=== PATIENT | female | born 1970 | race Caucasian/White ===

== ENCOUNTER → 2016-11-02 | Outpatient (CLI) | payer MEDICAID ==
[~2016-11-02] MED LIST: AMINOPHYLLINE INJ/PF 250 MG/10 ML SDV IV ONE; REGADENOSON INJ 0.4 MG/5 ML DISP.SYRIN IV ONE
--- NOTE | 2016-11-02 14:14 | DRAGON STRESS TEST REPORT ---
INTRAVENOUS LEXISCAN CARDIOLITE STRESS TEST USING SINGLE PHOTON EMMISION COMPUTERIZED TOMOGRAPHIC. DATE OF PROCEDURE: November 02, 2016 INDICATION : Chest pain CARDIAC RISK FACTORS: Diabetes, hypertension, nicotine use RESTING EKG: Sinus rhythm, no Baseline ST segment changes noted STRESS EKG: No significant changes noted with LexiScan bolus REASON FOR TERMINATION: Protocol. PROCEDURE REPORT: Baseline heart rate 69 beats per minute with blood pressure of 108/58. Patient had no significant complaints. Heart rate at 2 minutes post bolus 88 with a blood pressure of 137/51. 3 minutes post bolus heart rate 81 with blood pressure of 118/54. No significant EKG changes were noted. Patient had no significant complaints during the procedure or postprocedure. Patient injected with Aminophyllin 75 mg at 3 minutes or later after Lexiscan bolus. CONCLUSIONS: Normal EKG and hemodynamic response to IV LexiScan. NUCLEAR DATA: At rest the patient was given 14.7 millicuries of technetium 99 sestamibi injected intravenously. As per protocol rest gated SPECT images were obtained. Subsequently the patient was given intravenous LexiScan at a dose of 0.4 mg in 5 mL intravenously, followed by flush with normal saline. Subsequently the stress dose of 43.1 millicuries of technetium 99 sestamibi was injected intravenously. As per protocol stress gated images were obtained. NUCLEAR INTERPRETATION: Both raw and processed data were used for interpretation. Visual, qualitative, computer-generated quantitative data was used. There was good myocardial uptake of technetium compound. Motion artifact and soft tissue attenuations were noted. Increased visceral uptake was noted. Increased breast attenuation was noted which did cause some difficulty with interpretation. No definitive areas of transient perfusion defect noted except for mild decreased uptake in the mid anterior wall slightly more in the stress images as compared to rest but there were no corresponding wall motion abnormalities. Most likely related to differences in breast attenuation but cannot rule out mild mid anterior wall ischemia. No definitive areas of fixed perfusion defect or scars noted. EKG gated imaging showed LV EF at 58 %, rest and stress gated EF similar visually. T. I D. ratio was 1.36 and therefore abnormal. Lung heart ratio noted to be within normal limits at 0.26. No significant extracardiac and abnormal radiotracer activities were noted. RV free wall uptake was noted to be borderline increased. IMPRESSION: Also refer to comments under nuclear interpretation. Also test results needs to be interpreted in the context of pretest probability. 1. Probable mild ischemia in the mid anterior wall ischemia. Please refer to comments under nuclear interpretation. 2. There is no definitive scintigraphic evidence of myocardial infarction/scar. 3. EKG gated imaging shows left ejection fraction of approximately 58 %. 4. Transient ischemic dilatation was noted therefore worse ischemia or balanced ischemia would be under consideration. RECOMMENDATIONS: Aggressive risk factor modification, medical therapy. Consider further evaluation with such as heart catheterization, cardiac CTA, cardiac MRI, stress echo etc. as clinically indicated. Inability to exercise by itself can lead to increased cardiovascular event risks. Sanjeev Najera M.D., JAMAR[employer] Dash[employer] Developer sap technical developer, Board certified in cardiovascular diseases, Nuclear cardiology, Echocardiography Cardiac CT and cardiac MRI Ph. [phone] [facility]
== END ==
LOC: RAD 08:30
PROVIDERS: ATTEND Internal Medicine Cardiovascular Disease
DX: R07.2 Precordial pain (principal)
CPT/HCPCS: 93017; 78452; A9500; J2785; J0280; Q9969

== ENCOUNTER → 2016-11-21 | Outpatient (CLI) | payer MEDICAID ==
[2016-11-21 11:36] LABS: ABSOLUTE BASOPHILS # (AUTO) 0.1 10^3/uL (0.0-0.2); ABSOLUTE EOSINOPHILS # (AUTO) 0.6 10^3/uL (0.0-0.6); ABSOLUTE LYMPHOCYTES (AUTO) 2.4 10^3/uL (0.5-4.7); ABSOLUTE MONOCYTES (AUTO) 0.8 10^3/uL (0.1-1.4); ABSOLUTE NEUT (AUTO) 7.5 10^3/uL (1.7-8.2); EOSINOPHILS % (AUTO) 5.2 % (0-6); HEMATOCRIT 30.7 % (36.0-47.0); HEMOGLOBIN 9.8 g/dL (12.0-15.5); HGB HCT DIFFERENCE -1.3; LYMPHOCYTES % (AUTO) 21.4 % (13-45); MEAN CORPUSCULAR HEMOGLOBIN 22.1 pg (27.0-33.4); MEAN CORPUSCULAR VOLUME 69 fl (80-97); MONOCYTES % (AUTO) 6.9 % (3-13); RED BLOOD COUNT 4.45 10^6/uL (3.72-5.28); RED CELL DISTRIBUTION WIDTH 17.3 % (11.5-14.0); SEGMENTED NEUTROPHILS % (AUTO) 65.5 % (42-78); WHITE BLOOD COUNT 11.4 10^3/uL (4.0-10.5)
[2016-11-21 11:39] LABS: PROTHROMBIN TIME 12.5 SEC (11.4-15.4)
[2016-11-21 11:40] LABS: PARTIAL THROMBOPLASTIN TIME 28.6 SEC (23.5-35.8)
[2016-11-21 12:00] LABS: ANION GAP 14 (5-19); BLOOD UREA NITROGEN 13 mg/dL (7-20); CALCIUM 9.9 mg/dL (8.4-10.2); CARBON DIOXIDE 25 mmol/L (22-30); CHLORIDE 100 mmol/L (98-107); CREATININE RESULT 1.06 mg/dL (0.52-1.25); GLUCOSE 108 mg/dL (75-110); POTASSIUM 4.5 mmol/L (3.6-5.0); SODIUM 139.2 mmol/L (137-145)
== END ==
LOC: OD 10:32
PROVIDERS: ATTEND Internal Medicine Cardiovascular Disease
DX: Z01.810 Encounter for preprocedural cardiovascular examination (principal); R07.89 Other chest pain; Z79.01 Long term (current) use of anticoagulants
CPT/HCPCS: 36415; 80048; 85025; 85610; 85730

== ENCOUNTER 2017-02-25 03:40 | Emergency (ER) | payer MEDICAID ==
[2017-02-25 03:50] VITALS: BP 135/78
== END 2017-02-25 05:32 | disposition left against medical advice (07) ==
LOC: ER 03:40
DX: Z53.21 Procedure and treatment not carried out due to patient leaving prior to being seen by health care provider (principal)

== ENCOUNTER 2017-02-26 20:16 | Emergency (ER) | payer MEDICAID ==
[2017-02-26] MEDS ORDERED: ASPIRIN 81 MG TABLET, CHEWABLE PO ONE (20:18)
[2017-02-26 20:55] LABS: ABSOLUTE BASOPHILS # (AUTO) 0.1 10^3/uL (0.0-0.2); ABSOLUTE EOSINOPHILS # (AUTO) 0.6 10^3/uL (0.0-0.6); ABSOLUTE LYMPHOCYTES (AUTO) 1.9 10^3/uL (0.5-4.7); ABSOLUTE MONOCYTES (AUTO) 0.8 10^3/uL (0.1-1.4); ABSOLUTE NEUT (AUTO) 8.4 10^3/uL (1.7-8.2); BASOPHILS % (AUTO) 0.7 % (0-2); EOSINOPHILS % (AUTO) 4.7 % (0-6); HEMOGLOBIN 8.9 g/dL (12.0-15.5); HGB HCT DIFFERENCE -1.3; LYMPHOCYTES % (AUTO) 16.1 % (13-45); MEAN CORPUSCULAR HEMOGLOBIN 21.4 pg (27.0-33.4); MEAN CORPUSCULAR HGB CONC 31.7 g/dL (32.0-36.0); MEAN CORPUSCULAR VOLUME 68 fl (80-97); MONOCYTES % (AUTO) 6.7 % (3-13); RED BLOOD COUNT 4.15 10^6/uL (3.72-5.28); RED CELL DISTRIBUTION WIDTH 17.9 % (11.5-14.0); SEGMENTED NEUTROPHILS % (AUTO) 71.8 % (42-78); WHITE BLOOD COUNT 11.8 10^3/uL (4.0-10.5)
--- NOTE | 2017-02-26 21:01 | ER Document Report ---
ED General - General Chief Complaint: Chest Pain Stated Complaint: CHEST PAIN Time Seen by Provider: 02/26/17 20:43 Mode of Arrival: Ambulatory Information source: Patient Notes: 46-year-old female presents to ED for pain that started in her back yesterday. She states the pain is in her mid to upper back wrapped around to her upper stomach and is now up in her chest. Patient denies any nausea vomiting shortness of breath or fever. She denies any cardiac history except for high blood pressure. She states she does have diabetes and anxiety as well as migraines. She also has depression PTSD and ADHD. Patient is in no acute distress on examination. TRAVEL OUTSIDE OF THE [place] IN LAST 30 DAYS: No - HPI Onset: Yesterday Onset/Duration: Gradual - See HPI see above note Quality of pain: Achy, Cramping Severity: Severe Pain Level: 5 Associated symptoms: Chest pain, Other - Back pain. denies: Nonproductive cough , Productive cough, Fever, Nausea, Vomiting Exacerbated by: Sitting, Movement, Walking Relieved by: Denies Similar symptoms previously: Yes Recently seen / treated by doctor: No - Related Data Allergies/Adverse Reactions: No Known Allergies Allergy (Verified 02/26/17 20:28) Past Medical History - General Information source: Patient - Social History Smoking Status: Current Every Day Smoker Cigarette use (# per day): Yes - 6 cigarettes a day Chew tobacco use (# tins/day): No Smoking Education Provided: Yes - Less than 2 minutes she states she is trying to quit she is on Chantix Frequency of alcohol use: None Drug Abuse: None Occupation: Own cleaning service Lives with: Family, Spouse/Significant other Family History: Arthritis, CAD, COPD, DM, Hyperlipidemia, Hypertension, Malignancy, Other - Anemia Patient has suicidal ideation: No Patient has homicidal ideation: No - Past Medical History Cardiac Medical History: Reports: Hx Hypertension - on meds Pulmonary Medical History: Reports: Hx Asthma, Hx Bronchitis, Hx COPD - inhalers Neurological Medical History: Reports: Hx Migraine Endocrine Medical History: Reports: Hx Diabetes Mellitus Type 2 Renal/ Medical History: Reports: Hx Ovarian Cysts Malignancy Medical History: Reports: None GI Medical History: Reports: Hx Crohn's Disease, Hx Gastroesophageal Reflux Disease Musculoskeltal Medical History: Reports Hx Arthritis - spine, all joints, Reports Hx Fibromyalgia, Reports Hx Musculoskeletal Trauma Skin Medical History: Reports None Psychiatric Medical History: Reports: Hx Anxiety, Hx Attention Deficit Hyperactivity Disorder, Hx Depression, Hx Post Traumatic Stress Disorder Traumatic Medical History: Reports: Hx Fractures - Foot Infectious Medical History: Reports: None Past Surgical History: Reports: Hx Section, Hx Cholecystectomy, Hx Herniorrhaphy, Hx Tubal Ligation - Immunizations Immunizations up to date: Yes Hx Diphtheria, Pertussis, Tetanus Vaccination: Yes Review of Systems - Review of Systems Constitutional: No symptoms reported EENT: No symptoms reported Cardiovascular: No symptoms reported Respiratory: No symptoms reported Gastrointestinal: Abdominal pain - epigastric radiates to chest started in back Genitourinary: No symptoms reported Female Genitourinary: No symptoms reported Musculoskeletal: Back pain Skin: No symptoms reported Hematologic/Lymphatic: No symptoms reported Neurological/Psychological: No symptoms reported -: Yes All other systems reviewed and negative Physical Exam - Vital signs Vitals: Pulse Ox 100 02/26/17 20:18 Interpretation: Normal - General General appearance: Appears well, Alert - HEENT Head: Normocephalic, Atraumatic Eyes: Normal Pupils: PERRL - Respiratory Respiratory status: No respiratory distress Chest status: Nontender, Tender - Tender to touch back and lower sternum area Breath sounds: Normal Chest palpation: Normal - Cardiovascular Rhythm: Regular Heart sounds: Normal auscultation Murmur: No - Abdominal Inspection: Normal Distension: No distension Bowel sounds: Normal Tenderness: Tender - Upper abdomen bilateral Organomegaly: No organomegaly - Back Back: Normal, Nontender - Extremities General upper extremity: Normal inspection, Nontender, Normal color, Normal ROM , Normal temperature General lower extremity: Normal inspection, Nontender, Normal color, Normal ROM , Normal temperature, Normal weight bearing. No: Ana Rosa's sign - Neurological Neuro grossly intact: Yes Cognition: Normal Orientation: AAOx4 [place] Coma Scale Eye Opening: Spontaneous Jessica Coma Scale Verbal: Oriented Jessica Coma Scale Motor: Obeys Commands [place] Coma Scale Total: 15 Speech: Normal Motor strength normal: LUE, RUE, LLE, RLE Sensory: Normal - Psychological Associated symptoms: Normal affect, Normal mood - Skin Skin Temperature: Warm Skin Moisture: Dry Skin Color: Normal Course - Re-evaluation Re-evalutation: 02/27/17 03:36 discussed labs and chest xray with patient and Dr vega. Patient to follow up with primary md in the am to schedule a follow up appointment. - Vital Signs Vital signs: Temp Pulse Resp BP Pulse Ox 98.3 F 87 19 125/77 95 02/26/17 20:28 02/26/17 20:28 02/27/17 03:01 02/27/17 03:01 02/27/17 03:01 - Laboratory Result Diagrams: 02/26/17 20:20 02/26/17 20:20 Laboratory results interpreted by me: 02/26/17 02/26/17 20:20 20:20 WBC 11.8 H Hgb 8.9 L Hct 28.0 L MCV 68 L MCH 21.4 L MCHC 31.7 L RDW 17.9 H Absolute Neutrophils 8.4 H Creatinine 1.32 H Est GFR ( Amer) 53 L Est GFR (Non-Af Amer) 44 L Glucose 118 H - Diagnostic Test Radiology reviewed: Image reviewed, Reports reviewed - EKG Interpretation by Me EKG shows normal: Sinus rhythm Discharge - Discharge Clinical Impression: Upper back pain on left side Chest pain Qualifiers: Chest pain type: unspecified Qualified Code(s): R07.9 - Chest pain, unspecified Condition: Stable Disposition: HOME, SELF-CARE Additional Instructions: CHEST PAIN OF UNCLEAR CAUSE: The exact cause of your chest pain isn't clear. Fortunately, there is no evidence of a dangerous medical condition. Further testing may be required to find the source of the pain. Most often, we find that this pain is coming from the chest wall -- the muscles or rib joints in the chest. But chest pain can come from the lung and lung lining, the esophagus, the heart valves or heart lining, and even the stomach or gallbladder. Rest. Eat lightly until the pain is gone. We may prescribe medicine for pain and inflammation. You should call the physician immediately if the pain radiates to the shoulder, jaw or arms; if you start to run a fever or develop a cough; or if you develop shortness of breath, or other new or alarming symptoms. NORMAL EXAM AND WORKUP: At this time, your examination and workup show no significant abnormality. No significant abnormal physical findings were noted. All laboratory, EKG, and imaging (x-ray, CT scans, ultrasound) studies that were ordered show no significant abnormality. Although your examination and all studies that were ordered showed no significant abnormal finding, there are no examinations and no studies that are 100% accurate. There is always the possibility that some abnormality could exist and not be detected with physical examination or within the limits and capabilities of laboratory and other studies. You should return or follow up as you were instructed on your visit today for further evaluation if your symptoms do not resolve. CHEST WALL PAIN: Your chest pain may be coming from the chest wall. This is often caused by straining the muscles or joints in the chest during physical activity, direct trauma, coughing, or vigorous vomiting. Persons with arthritis are especially prone to this type of pain, due to inflammation of the cartilage joints near the breast bone. Occasionally, no cause can be found. Rest from strenuous physical activity. This kind of chest pain is usually made worse by movement of the chest. Depending on the symptoms, we may prescribe medicine for pain, muscle relaxation, and antiinflammatory effects. If the pain is new, and seems to be due to muscle strain, cold packs can help. Otherwise, apply gentle warmth to the painful area for 15 minutes every hour or two. You should call contact the doctor immediately if things change. Further evaluation is needed if you develop a fever or cough, if the nature of the pain changes, or if you become short of breath. ACID REFLUX DISEASE (GERD): Gastro-Esophageal Reflux Disease (GERD) is caused by stomach acid refluxing back up into the esophagus. The valve at the end of the esophagus may be weak. This is common in persons with a hiatal hernia. GERD symptoms can include indigestion, chest pain, heartburn, or food "sticking." Certain foods, alcohol, and aspirin can make GERD worse. Treatment depends on the severity. Usually, antacids or acid-suppressing medicines are used. When the esophagus is acutely inflamed, the physician will often prescribe membrane-protective drugs such as Carafate. Some patients benefit from medication such as Reglan that tightens the valve at the top of the stomach. Avoid those foods that bring on your symptoms. For many people, these foods are coffee, chocolate, onions, garlic, and carbonated drinks. Don't use alcohol, aspirin, caffeine, or tobacco. Don't eat late at night -- within 4 hours of bedtime. Don't over-eat. If necessary, elevate the head of your bed about 4 inches so that stomach acid will not roll up into your esophagus. Call the doctor if you develop severe chest pain, inability to swallow fluids, fever, or worsening symptoms. ASPIRIN: Aspirin has been shown to have a beneficial effect on blood circulation by reducing the clotting effect of platelets in the blood. These beneficial effects can be achieved by taking just a single baby (81 mg) aspirin a day. It is recommended that any person over the age of forty take a single baby aspirin every day for heart and brain circulation, unless you are allergic to aspirin or have some significant bleeding disorder. It is strongly recommended that people who have proven cardiac or blood circulation disturbances should take a baby aspirin every day. ANTACID THERAPY: You have been instructed to start antacid therapy. Antacids directly neutralize stomach acid. This is useful for acid irritation of the esophagus, gastritis, and ulcers. You should take two tablespoons of antacid one hour after each meal and three hours after each meal. If you are not eating, take the antacid every two hours. If you are using a concentrate (such as Maalox TC), use only one tablespoon. Many antacids affect the bowels. The most common problem is diarrhea. In this case, a pure aluminum hydroxide antacid (such as AlternaGel) can be substituted for some or all doses. If the problem is constipation, add a teaspoon of Milk of Magnesia to each dose. Call the doctor if you experience continued diarrhea or constipation, or if you develop lightheadedness, bloody stool or vomitus, severe abdominal pain, or black stool. Please call your primary doctor tomorrow and schedule a follow-up visit. Please take your labs and x-ray with you to this visit. Any increase in chest pain or change in chest pain please come back to the ER for reexamination. FOLLOW-UP CARE: If you have been referred to a physician for follow-up care, call the physician s office for an appointment as you were instructed or within the next two days. If you experience worsening or a significant change in your symptoms, notify the physician immediately or return to the Emergency Department at any time for re-evaluation. Forms: Smoking Cessation Education Referrals: ANDREA JUNG, [Primary Care Provider] - Follow up as needed
[2017-02-26 21:02] LABS: ALANINE AMINOTRANSFERASE 28 U/L (9-52); ALKALINE PHOSPHATASE 73 U/L (38-126); ANION GAP 14 (5-19); ASPARTATE AMINO TRANSFERASE 18 U/L (14-36); BILIRUBIN,DIRECT 0.3 mg/dL (0.0-0.4); BILIRUBIN,TOTAL 0.4 mg/dL (0.2-1.3); BLOOD UREA NITROGEN 14 mg/dL (7-20); CALCIUM 9.6 mg/dL (8.4-10.2); CARBON DIOXIDE 23 mmol/L (22-30); CHLORIDE 102 mmol/L (98-107); CREATINE KINASE 88 U/L (30-135); CREATININE RESULT 1.32 mg/dL (0.52-1.25); GLUCOSE 118 mg/dL (75-110); POTASSIUM 3.9 mmol/L (3.6-5.0); SODIUM 138.5 mmol/L (137-145)
[2017-02-26 21:13] LABS: CREATINE KINASE MB 0.54 ng/mL (<4.55)
[2017-02-26 21:18] LABS: TROPONIN I < 0.012 ng/mL
--- NOTE | 2017-02-26 22:06 | RADIOLOGY REPORT (SQ) ---
EXAM DESCRIPTION: CHEST SINGLE VIEW COMPLETED DATE/TIME: 02/26/2017 9:15 pm REASON FOR STUDY: chest pain COMPARISON: May 2016 EXAM PARAMETERS: NUMBER OF VIEWS: One view. TECHNIQUE: Single frontal radiographic view of the chest acquired. RADIATION DOSE: NA LIMITATIONS: None. FINDINGS: LUNGS AND PLEURA: No opacities, masses or pneumothorax. No pleural effusion. MEDIASTINUM AND HILAR STRUCTURES: No masses. Contour normal. HEART AND VASCULAR STRUCTURES: Heart normal in size. Normal vasculature. BONES: No acute findings. HARDWARE: None in the chest. OTHER: No other significant finding. IMPRESSION: NO ACUTE RADIOGRAPHIC FINDING IN THE CHEST. TECHNICAL DOCUMENTATION: JOB ID: [id number]
[2017-02-27 03:09] VITALS: BP 125/77
--- NOTE | 2017-02-27 08:03 | EKG REPORT ---
SEVERITY:- OTHERWISE NORMAL ECG - SINUS RHYTHM BORDERLINE LEFT AXIS DEVIATION : Confirmed by: Raj Landeros MD 27-Feb-2017 08:02:48
== END 2017-02-27 03:25 | disposition home or self-care (01) ==
LOC: ER 20:16
DX: R07.9 Chest pain, unspecified (principal); M54.6 Pain in thoracic spine; F32.9 Major depressive disorder, single episode, unspecified; F90.9 Attention-deficit hyperactivity disorder, unspecified type; F17.210 Nicotine dependence, cigarettes, uncomplicated
CPT/HCPCS: 36415; 71010; 80053; 82550; 82553; 83690; 84484; 85025; 93005; 93010; 99285

== ENCOUNTER 2017-09-21 20:43 | Emergency (ER) | payer MEDICAID ==
[2017-09-21] MEDS ORDERED: KETOROLAC TROMETHAMINE INJ/PF 30 MG/1 ML SDV IV ONE (22:39)
[2017-09-21] MEDS ORDERED: ONDANSETRON HCL INJ/PF 4 MG/2 ML SDV IV ONE (22:39)
[2017-09-21] MEDS ORDERED: NORMAL SALINE 1000 ML 1,000 ML IV ONE (22:39)
[2017-09-21] MEDS ORDERED: DIPHENHYDRAMINE HCL 50 MG/ML VIAL IV ONE (22:39)
--- NOTE | 2017-09-21 22:41 | ER Document Report ---
ED GI/ - General Chief Complaint: Flank Pain Stated Complaint: R FLANK PAIN Time Seen by Provider: 09/21/17 22:28 Notes: Patient is a 47-year-old female who comes emergency department for chief complaint of abdominal pain, she states pain is in her mid upper abdomen, she reports nausea but denies vomiting. Symptoms started yesterday, intermittent, worsened tonight. She denies fever or chills. She states she has pain in her back but this is "chronic". She denies injury, vaginal bleeding or discharge, dysuria. She states that she has not been able to have a bowel movement for about 3 days even though she is "straining and trying". She is not on stool softeners. Past medical history of cholecystectomy, anxiety, depression, PTSD, fibromyalgia, hypertension. TRAVEL OUTSIDE OF THE [place] IN LAST 30 DAYS: No - Related Data Allergies/Adverse Reactions: No Known Allergies Allergy (Verified 09/21/17 23:45) Past Medical History - General Information source: Patient - Social History Smoking Status: Former Smoker Chew tobacco use (# tins/day): No Frequency of alcohol use: None Drug Abuse: None Lives with: Spouse/Significant other Family History: Arthritis, CAD, COPD, DM, Hyperlipidemia, Hypertension, Malignancy, Other - Anemia Patient has suicidal ideation: No Patient has homicidal ideation: No - Past Medical History Cardiac Medical History: Reports: Hx Hypertension - on meds Pulmonary Medical History: Reports: Hx Asthma, Hx Bronchitis, Hx COPD - inhalers Neurological Medical History: Reports: Hx Migraine Renal/ Medical History: Reports: Hx Ovarian Cysts. Denies: Hx Peritoneal Dialysis GI Medical History: Reports: Hx Crohn's Disease, Hx Gastroesophageal Reflux Disease Musculoskeltal Medical History: Reports Hx Arthritis - spine, all joints, Reports Hx Fibromyalgia, Reports Hx Musculoskeletal Trauma Psychiatric Medical History: Reports: Hx Anxiety, Hx Attention Deficit Hyperactivity Disorder, Hx Depression, Hx Post Traumatic Stress Disorder Traumatic Medical History: Reports: Hx Fractures - Foot Past Surgical History: Reports: Hx Section, Hx Cholecystectomy, Hx Herniorrhaphy, Hx Tubal Ligation - Immunizations Immunizations up to date: Yes Hx Diphtheria, Pertussis, Tetanus Vaccination: Yes Review of Systems - Review of Systems Constitutional: No symptoms reported EENT: No symptoms reported Cardiovascular: No symptoms reported Respiratory: No symptoms reported Gastrointestinal: See HPI Genitourinary: See HPI Female Genitourinary: No symptoms reported Musculoskeletal: No symptoms reported Skin: No symptoms reported Hematologic/Lymphatic: No symptoms reported Neurological/Psychological: No symptoms reported Physical Exam - Vital signs Vitals: Temp Pulse Resp BP Pulse Ox 98.2 F 80 20 111/61 100 09/21/17 20:53 09/21/17 20:53 09/21/17 20:53 09/21/17 20:53 09/21/17 20:53 Interpretation: Normal - General General appearance: Appears well, Alert In distress: None - HEENT Head: Normocephalic, Atraumatic Eyes: Normal Pupils: PERRL - Respiratory Respiratory status: No respiratory distress Chest status: Nontender Breath sounds: Normal Chest palpation: Normal - Cardiovascular Rhythm: Regular Heart sounds: Normal auscultation Murmur: No - Abdominal Inspection: Normal Distension: No distension. No: Distended Bowel sounds: Normal Tenderness: Nontender. No: Tender, Guarding, Rebound Organomegaly: No organomegaly - Back Back: Normal, Nontender - Extremities General upper extremity: Normal inspection, Nontender, Normal color, Normal ROM , Normal temperature General lower extremity: Normal inspection, Nontender, Normal color, Normal ROM , Normal temperature, Normal weight bearing. No: Ana Rosa's sign - Neurological Neuro grossly intact: Yes Cognition: Normal Orientation: AAOx4 Jessica Coma Scale Eye Opening: Spontaneous [place] Coma Scale Verbal: Oriented [place] Coma Scale Motor: Obeys Commands Jessica Coma Scale Total: 15 Speech: Normal Motor strength normal: LUE, RUE, LLE, RLE Sensory: Normal - Psychological Associated symptoms: Normal affect, Normal mood - Skin Skin Temperature: Warm Skin Moisture: Dry Skin Color: Normal Course - Re-evaluation Re-evalutation: Soft abdomen, well-appearing patient. Unremarkable vital signs. CBC shows minimal leukocytosis with no shift. Anemia is chronic, patient states she is already aware of this and been told to take iron in the past but refused. Chemistry unremarkable, urinalysis unremarkable. Acute abdominal series showing no obstructive or concerning acute or normality's, shows moderate retained stool which is not close to the sigmoid/rectum. Patient was given hydration, medications, sitting up, smiling, conversational. Discussed workup. Very low suspicion of acute abdomen based on presentation on exam, low suspicion of infection or concerning etiology. Discussed options with patient, patient given magnesium citrate to go home with, prescriptions, follow-up recommendations, and return precautions. Patient and significant other state understanding and agreement. - Vital Signs Vital signs: Temp Pulse Resp BP Pulse Ox 97.6 F 68 16 121/54 L 99 09/22/17 01:20 09/22/17 01:20 09/22/17 01:20 09/22/17 01:20 09/22/17 01:20 - Laboratory Result Diagrams: 09/21/17 23:30 09/21/17 23:30 Laboratory results interpreted by me: 09/21/17 09/21/17 09/21/17 23:30 23:30 23:30 WBC 10.6 H Hgb 8.7 L Hct 27.8 L MCV 67 L MCH 21.1 L MCHC 31.3 L RDW 18.1 H Plt Count 456 H Carbon Dioxide 21 L Est GFR (Non-Af Amer) 52 L Glucose 124 H Urine Protein 30 H Urine Bilirubin MODERATE H Urine Urobilinogen 2.0 H Ur Leukocyte Esterase TRACE H Discharge - Discharge Clinical Impression: Abdominal pain Qualifiers: Abdominal location: generalized Qualified Code(s): R10.84 - Generalized abdominal pain Condition: Stable Disposition: HOME, SELF-CARE Additional Instructions: Your workup shows retained stool which is probably the cause of your discomfort. I recommend drinking 1 12:45 half of the magnesium citrate, waiting , if needed during the rest, if needed take the Colace prescribed for the next few days. Afterwards stop the medication and improve fiber in your diet. Stay hydrated. Take the Bentyl for cramping if needed, take the Phenergan for nausea if needed. Your workup also shows some degenerative changes in your back and also shows anemia. Please follow-up with primary care for additional management of these. Return the emergency department for any concerning symptoms including vomiting, fever, severe pain, swelling of the abdomen, or any other concerning or worsening symptoms. Prescriptions: Dicyclomine HCl [Bentyl 20 mg Tablet] 20 mg PO QID PRN #20 tablet PRN Reason: Docusate Sodium [Colace 100 mg Capsule] 100 mg PO ASDIR PRN #30 capsule PRN Reason: Promethazine HCl [Phenergan 25 mg Tablet] 1 - 2 tab PO Q6H PRN #15 tablet PRN Reason: Referrals: ANDREA JUNG DO [Primary Care Provider] - Follow up as needed
[2017-09-21 23:51] LABS: ABSOLUTE BASOPHILS # (AUTO) 0.1 10^3/uL (0.0-0.2); ABSOLUTE EOSINOPHILS # (AUTO) 0.3 10^3/uL (0.0-0.6); ABSOLUTE LYMPHOCYTES (AUTO) 2.4 10^3/uL (0.5-4.7); ABSOLUTE MONOCYTES (AUTO) 0.7 10^3/uL (0.1-1.4); BASOPHILS % (AUTO) 1.2 % (0-2); EOSINOPHILS % (AUTO) 2.6 % (0-6); HEMATOCRIT 27.8 % (36.0-47.0); HEMOGLOBIN 8.7 g/dL (12.0-15.5); LYMPHOCYTES % (AUTO) 23.1 % (13-45); MEAN CORPUSCULAR HEMOGLOBIN 21.1 pg (27.0-33.4); MEAN CORPUSCULAR HGB CONC 31.3 g/dL (32.0-36.0); MEAN CORPUSCULAR VOLUME 67 fl (80-97); MONOCYTES % (AUTO) 6.6 % (3-13); PLATELET COUNT 456 10^3/uL (150-450); RED BLOOD COUNT 4.13 10^6/uL (3.72-5.28); RED CELL DISTRIBUTION WIDTH 18.1 % (11.5-14.0); SEGMENTED NEUTROPHILS % (AUTO) 66.5 % (42-78); TOTAL CELLS COUNTED % (AUTO) 100 %; WHITE BLOOD COUNT 10.6 10^3/uL (4.0-10.5)
[2017-09-22 00:01] LABS: COLOR,URINE AMBER
[2017-09-22 00:02] LABS: APPEARANCE,URINE SLIGHTLY-CLOUDY; BILIRUBIN,URINE MODERATE (NEGATIVE); GLUCOSE, URINE NEGATIVE (NEGATIVE)
[2017-09-22 00:03] LABS: ADD MANUAL MICROSCOPIC YES; KETONES,URINE NEGATIVE (NEGATIVE); LEUKOCYTE ESTERASE,URINE TRACE (NEGATIVE); NITRITE,URINE NEGATIVE (NEGATIVE); PROTEIN,URINE 30 mg/dL (NEGATIVE); RBC,URINE 0-1 /HPF; URINE SPECIFIC GRAVITY 1.027; WBC,URINE 0-1 /HPF
--- NOTE | 2017-09-22 00:13 | RADIOLOGY REPORT (SQ) ---
EXAM DESCRIPTION: ACUTE ABDOMEN SERIES CLINICAL HISTORY: mid abd pain, nausea, no recent BM COMPARISON: None. FINDINGS: Single view of the chest with upright and spine views of the abdomen. Cardia mediastinal silhouette has normal size and contour. No consolidation, pneumothorax, or pleural effusion. No displaced rib fractures. Upright spine views of the abdomen demonstrate no free intraperitoneal air. Prior cholecystectomy. Scattered air-filled loops of large and small bowel. Moderate amount of stool. Bilateral surgical clips in the pelvis. Minimal degenerative change of the spine. No acute osseous abnormalities. No definite abnormal calcifications identified. IMPRESSION: 1. No acute pulmonary process. Nonobstructive bowel gas pattern.
[2017-09-22 00:27] LABS: ALANINE AMINOTRANSFERASE 26 U/L (9-52); ALKALINE PHOSPHATASE 74 U/L (38-126); ANION GAP 12 (5-19); ASPARTATE AMINO TRANSFERASE 19 U/L (14-36); BILIRUBIN,DIRECT 0.1 mg/dL (0.0-0.4); BILIRUBIN,TOTAL 0.4 mg/dL (0.2-1.3); BLOOD UREA NITROGEN 11 mg/dL (7-20); CALCIUM 9.7 mg/dL (8.4-10.2); CARBON DIOXIDE 21 mmol/L (22-30); CHLORIDE 105 mmol/L (98-107); GLUCOSE 124 mg/dL (75-110); LIPASE 47.7 U/L (23-300); POTASSIUM 4.3 mmol/L (3.6-5.0); SODIUM 138.2 mmol/L (137-145); TOTAL PROTEIN 6.5 g/dL (6.3-8.2)
[2017-09-22] MEDS ORDERED: MAGNESIUM CITRATE 296 ML BOTTLE PO ONE (00:51)
[2017-09-22 01:27] VITALS: BP 121/54
== END 2017-09-22 01:28 | disposition home or self-care (01) ==
LOC: ER 20:43
DX: R10.84 Generalized abdominal pain (principal); R11.0 Nausea; Z90.49 Acquired absence of other specified parts of digestive tract; F41.9 Anxiety disorder, unspecified; F32.9 Major depressive disorder, single episode, unspecified; F43.11 Post-traumatic stress disorder, acute; M79.7 Fibromyalgia; I10 Essential (primary) hypertension; Z87.891 Personal history of nicotine dependence
CPT/HCPCS: 99284; 96361; 96374; 96375; 36415; 83690; 85025; 80053; 81001; 74022; J3490; J1200; J1885; J2405; J7030

== ENCOUNTER → 2018-03-22 | Outpatient (CLI) | payer MEDICAID ==
--- NOTE | 2018-03-22 16:58 | RADIOLOGY REPORT (SQ) ---
EXAM DESCRIPTION: HAND RIGHT 3 VIEWS COMPLETED DATE/TIME: 03/22/2018 4:47 pm REASON FOR STUDY: RT HAND PAIN M79.641 PAIN IN RIGHT HAND COMPARISON: None. EXAM PARAMETERS: NUMBER OF VIEWS: Three views. TECHNIQUE: AP, lateral and oblique radiographic images acquired of the right hand. LIMITATIONS: None. FINDINGS: MINERALIZATION: Normal. BONES: No acute fracture or dislocation. No worrisome bone lesions. JOINTS: No effusions. SOFT TISSUES: No soft tissue swelling. No foreign body. OTHER: No other significant finding. IMPRESSION: 1. NEGATIVE STUDY OF THE RIGHT HAND. TECHNICAL DOCUMENTATION: JOB ID: [id number] [employer]- All Rights Reserved Reading location - IP/workstation name: [email or web address]
== END ==
LOC: OD 16:23
PROVIDERS: ATTEND Family Medicine
DX: M79.641 Pain in right hand (principal)

== ENCOUNTER 2018-03-24 09:45 | Emergency (ER) | payer MEDICAID ==
[2018-03-24 10:04] VITALS: BP 123/75
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
[2018-03-24] MEDS ORDERED: IBUPROFEN 800 MG TABLET PO ONE (10:30)
== END 2018-03-24 10:48 | disposition home or self-care (01) ==
LOC: ER 09:45
DX: S60.221A Contusion of right hand, initial encounter (principal); S60.211A Contusion of right wrist, initial encounter; X58.XXXA Exposure to other specified factors, initial encounter; F17.200 Nicotine dependence, unspecified, uncomplicated; I10 Essential (primary) hypertension; J44.9 Chronic obstructive pulmonary disease, unspecified; E11.9 Type 2 diabetes mellitus without complications
CPT/HCPCS: 99283; J3490

== ENCOUNTER 2018-04-25 19:51 | Emergency (ER) | payer MEDICAID ==
--- NOTE | 2018-04-25 20:22 | ER Document Report ---
ED Medical Screen (RME) - General Chief Complaint: Flank Pain Stated Complaint: KIDNEY CYST INFECTION Time Seen by Provider: 04/25/18 20:16 Notes: Pt. stated she has a cyst on her right kidney. Stated in the last few days she has had increased pain in right flank and moving around to her RUQ. Stated that she called her PCP who told her the cyst could be growing. Stated today when she went to the bathroom she noticed a white/yellow d/c when she wiped her vagina. Denies dysuria, fever, superpubic pain. EXAM: +R CVA tenderness I have greeted and performed a rapid initial assessment of this patient. A comprehensive ED assessment and evaluation of the patient, analysis of test results and completion of the medical decision making process will be conducted by additional ED providers. TRAVEL OUTSIDE OF THE [place] IN LAST 30 DAYS: No - Related Data Allergies/Adverse Reactions: No Known Allergies Allergy (Verified 09/21/17 23:45) Past Medical History - Social History Chew tobacco use (# tins/day): No - Past Medical History Cardiac Medical History: Reports: Hx Hypertension - on meds Pulmonary Medical History: Reports: Hx Asthma, Hx Bronchitis, Hx COPD - inhalers Neurological Medical History: Reports: Hx Migraine Endocrine Medical History: Reports: Hx Diabetes Mellitus Type 2 Renal/ Medical History: Reports: Hx Ovarian Cysts. Denies: Hx Peritoneal Dialysis GI Medical History: Reports: Hx Crohn's Disease, Hx Gastroesophageal Reflux Disease Musculoskeltal Medical History: Reports Hx Arthritis - spine, all joints, Reports Hx Fibromyalgia, Reports Hx Musculoskeletal Trauma Psychiatric Medical History: Reports: Hx Anxiety, Hx Attention Deficit Hyperactivity Disorder, Hx Depression, Hx Post Traumatic Stress Disorder Traumatic Medical History: Reports: Hx Fractures - Foot Past Surgical History: Reports: Hx Section, Hx Cholecystectomy, Hx Herniorrhaphy, Hx Tubal Ligation - Immunizations Immunizations up to date: Yes Hx Diphtheria, Pertussis, Tetanus Vaccination: Yes Physical Exam - Vital signs Vitals: Temp Pulse Resp BP Pulse Ox 98.2 F 92 16 148/69 H 100 04/25/18 19:57 04/25/18 19:57 04/25/18 19:57 04/25/18 19:57 04/25/18 19:57 Course - Vital Signs Vital signs: Temp Pulse Resp BP Pulse Ox 98.2 F 92 16 148/69 H 100 04/25/18 19:57 04/25/18 19:57 04/25/18 19:57 04/25/18 19:57 04/25/18 19:57 Doctor's Discharge - Discharge Referrals: ANDREA JUNG DO [Primary Care Provider] - Follow up as needed
[2018-04-25 21:07] LABS: ABSOLUTE BASOPHILS # (AUTO) 0.1 10^3/uL (0.0-0.2); ABSOLUTE EOSINOPHILS # (AUTO) 0.4 10^3/uL (0.0-0.6); ABSOLUTE LYMPHOCYTES (AUTO) 2.3 10^3/uL (0.5-4.7); ABSOLUTE MONOCYTES (AUTO) 0.8 10^3/uL (0.1-1.4); ABSOLUTE NEUT (AUTO) 6.8 10^3/uL (1.7-8.2); BASOPHILS % (AUTO) 0.8 % (0-2); EOSINOPHILS % (AUTO) 3.6 % (0-6); HEMATOCRIT 27.5 % (36.0-47.0); HEMOGLOBIN 8.7 g/dL (12.0-15.5); MEAN CORPUSCULAR HEMOGLOBIN 20.3 pg (27.0-33.4); MEAN CORPUSCULAR HGB CONC 31.7 g/dL (32.0-36.0); MONOCYTES % (AUTO) 7.6 % (3-13); PLATELET COUNT 497 10^3/uL (150-450); RED BLOOD COUNT 4.29 10^6/uL (3.72-5.28); RED CELL DISTRIBUTION WIDTH 18.6 % (11.5-14.0); TOTAL CELLS COUNTED % (AUTO) 100 %; WHITE BLOOD COUNT 10.4 10^3/uL (4.0-10.5)
[2018-04-25 21:15] LABS: ALANINE AMINOTRANSFERASE 26 U/L (9-52); ALBUMIN 4.2 g/dL (3.5-5.0); ALKALINE PHOSPHATASE 72 U/L (38-126); ANION GAP 12 (5-19); ASPARTATE AMINO TRANSFERASE 16 U/L (14-36); BILIRUBIN,DIRECT 0.2 mg/dL (0.0-0.4); BILIRUBIN,TOTAL 0.2 mg/dL (0.2-1.3); BLOOD UREA NITROGEN 11 mg/dL (7-20); CALCIUM 9.4 mg/dL (8.4-10.2); CARBON DIOXIDE 25 mmol/L (22-30); CHLORIDE 101 mmol/L (98-107); GLUCOSE 126 mg/dL (75-110); SODIUM 138.4 mmol/L (137-145); TOTAL PROTEIN 7.1 g/dL (6.3-8.2)
[2018-04-25] MEDS ORDERED: ONDANSETRON 4 MG TAB.RAPDIS PO ONE (21:26)
[2018-04-25] MEDS ORDERED: KETOROLAC TROMETHAMINE 60 MG/2 ML SDV IM ONE (21:26)
--- NOTE | 2018-04-25 21:26 | ER Document Report ---
ED General - General Chief Complaint: Flank Pain Stated Complaint: KIDNEY CYST INFECTION Time Seen by Provider: 04/25/18 20:16 Notes: Patient is a 47-year-old female that presents to the emergency department for chief complaint of right flank pain. Patient states that this pain started about a week ago as a dull ache, and has progressively gotten worse. She states that on the right side and wraps around towards the front, she had associated nausea but no vomiting. Denies any fevers, chills, night sweats, rashes, diarrhea, dysuria or hematuria. Denies history of kidney stones. She does report she was noted to have a kidney cyst on the right that was found incidentally, and she was told by her primary care, that it may be growing which may be causing her pain. She has not taken any medication for her pain, she currently rates it as a 8 out of 10, worse with lying on the right side, and any range of motion. Denies any specific injuries. Past Medical History: Diabetes mellitus, COPD, hypertension Past Surgical History: Cholecystectomy, rotator cuff surgery, C-sections x2, tubal ligation Social History: Admits to smoking cigarettes, denies alcohol or drug use. Family History: Reviewed and noncontributory for presenting illness Allergies: Reviewed, see documented allergy list. REVIEW OF SYSTEMS: Unless otherwise stated in this report the patient's positive and negative responses for review of systems for constitutional, eyes, ENT, cardiovascular, respiratory, gastrointestinal, neurological, genitourinary, musculoskeletal, and integumentary systems and related systems to the presenting problem are either as stated in the HPI or were not pertinent or were negative for the symptoms and/or complaints related to the presenting medical problem. PHYSICAL EXAMINATION: Vital signs reviewed, nursing noted reviewed. GENERAL: Well-appearing, well-nourished and in no acute distress. HEAD: Atraumatic, normocephalic. EYES: Eyes appear normal, extraocular movements intact, sclera anicteric, conjunctiva are normal. ENT: nares patent, oropharynx clear without exudates. Moist mucous membranes. NECK: Normal range of motion, supple without lymphadenopathy LUNGS: Breath sounds clear to auscultation bilaterally and equal. No wheezes rales or rhonchi. HEART: Regular rate and rhythm without murmurs ABDOMEN: Obese, right flank tenderness with palpation, no rashes noted, no ecchymosis anterior abdomen is soft, normoactive bowel sounds. No rebound, guarding, or rigidity. No masses appreciated. EXTREMITIES: Nontender, good range of motion, no pitting or edema. NEUROLOGICAL: No focal neurological deficits. Moves all extremities spontaneously Motor and sensory grossly intact on exam. PSYCH: Normal mood, normal affect. SKIN: Warm, Dry, normal turgor, no rashes or lesions noted on exposed skin TRAVEL OUTSIDE OF THE [place] IN LAST 30 DAYS: No - Related Data Allergies/Adverse Reactions: No Known Allergies Allergy (Verified 09/21/17 23:45) Past Medical History - Social History Smoking Status: Current Some Day Smoker Chew tobacco use (# tins/day): No Family History: Arthritis, CAD, COPD, DM, Hyperlipidemia, Hypertension, Malignancy, Other - Anemia Patient has suicidal ideation: No Patient has homicidal ideation: No - Past Medical History Cardiac Medical History: Reports: Hx Hypertension - on meds Pulmonary Medical History: Reports: Hx Asthma, Hx Bronchitis, Hx COPD - inhalers Neurological Medical History: Reports: Hx Migraine Endocrine Medical History: Reports: Hx Diabetes Mellitus Type 2 Renal/ Medical History: Reports: Hx Ovarian Cysts. Denies: Hx Peritoneal Dialysis GI Medical History: Reports: Hx Crohn's Disease, Hx Gastroesophageal Reflux Disease Musculoskeletal Medical History: Reports Hx Arthritis - spine, all joints, Reports Hx Fibromyalgia, Reports Hx Musculoskeletal Trauma Psychiatric Medical History: Reports: Hx Anxiety, Hx Attention Deficit Hyperactivity Disorder, Hx Depression, Hx Post Traumatic Stress Disorder Traumatic Medical History: Reports: Hx Fractures - Foot Past Surgical History: Reports: Hx Section, Hx Cholecystectomy, Hx Herniorrhaphy, Hx Tubal Ligation - Immunizations Immunizations up to date: Yes Hx Diphtheria, Pertussis, Tetanus Vaccination: Yes Physical Exam - Vital signs Vitals: Temp Pulse Resp BP Pulse Ox 98.2 F 92 16 148/69 H 100 04/25/18 19:57 04/25/18 19:57 04/25/18 19:57 04/25/18 19:57 04/25/18 19:57 Course - Re-evaluation Re-evalutation: Patient seen and examined vital signs reviewed. Laboratory data and imaging were ordered as appropriate for the patient's presenting symptoms and complaint, with consideration of any critical or life threatening conditions that may be associated with their obtained history and exam as noted above. Patient was treated with Zofran and Toradol Results were reviewed when available and demonstrated anemia, this is compared with prior labs, and this is at the patient's baseline, the rest of her blood work was grossly unremarkable, urinalysis negative for blood, trace bacteria, but no other signs of urinary tract infection The patient was re-evaluated and was improved Evaluation was most consistent with flank pain, no specific cause identified, potentially renal colic, could be pain from the patient's cyst although unlikely. Patient advised to follow-up with her primary care, and urology. Results were discussed with the patient at this point, after careful consideration I feel that that patient can be discharged from the emergency department, the patient was educated treatments and reasons to return to the emergency department based on their presumed diagnosis as noted above, they were advised to followup with a primary care physician in 2-3 days. Patient was agreeable to plan of care. *Note is created using voice recognition software and may contain spelling, syntax or grammatical errors. Laboratory 04/25/18 04/25/18 04/25/18 20:39 20:39 20:39 WBC 10.4 RBC 4.29 Hgb 8.7 L Hct 27.5 L MCV 64 L MCH 20.3 L MCHC 31.7 L RDW 18.6 H Plt Count 497 H Seg Neutrophils % 66.0 Lymphocytes % 22.0 Monocytes % 7.6 Eosinophils % 3.6 Basophils % 0.8 Absolute Neutrophils 6.8 Absolute Lymphocytes 2.3 Absolute Monocytes 0.8 Absolute Eosinophils 0.4 Absolute Basophils 0.1 Platelet Comment ADEQUATE Polychromasia SLIGHT Hypochromasia 2+ Poikilocytosis SLIGHT Anisocytosis 1+ Microcytosis 3+ Ovalocytes 1+ Sodium 138.4 Potassium 4.0 Chloride 101 Carbon Dioxide 25 Anion Gap 12 BUN 11 Creatinine 0.96 Est GFR ( Amer) > 60 Est GFR (Non-Af Amer) > 60 Glucose 126 H Calcium 9.4 Total Bilirubin 0.2 Direct Bilirubin 0.2 Neonat Total Bilirubin Not Reportable Neonat Direct Bilirubin Not Reportable Neonat Indirect Bili Not Reportable AST 16 ALT 26 Alkaline Phosphatase 72 Total Protein 7.1 Albumin 4.2 Serum HCG, Qual NEGATIVE Urine Color Urine Appearance Urine pH Ur Specific [place] Urine Protein Urine Glucose (UA) Urine Ketones Urine Blood Urine Nitrite Urine Bilirubin Urine Urobilinogen Ur Leukocyte Esterase Urine WBC (Auto) Urine RBC (Auto) Squamous Epi Cells Auto Urine Mucus (Auto) Urine Ascorbic Acid 04/25/18 20:39 WBC RBC Hgb Hct MCV MCH MCHC RDW Plt Count Seg Neutrophils % Lymphocytes % Monocytes % Eosinophils % Basophils % Absolute Neutrophils Absolute Lymphocytes Absolute Monocytes Absolute Eosinophils Absolute Basophils Platelet Comment Polychromasia Hypochromasia Poikilocytosis Anisocytosis Microcytosis Ovalocytes Sodium Potassium Chloride Carbon Dioxide Anion Gap BUN Creatinine Est GFR ( Amer) Est GFR (Non-Af Amer) Glucose Calcium Total Bilirubin Direct Bilirubin Neonat Total Bilirubin Neonat Direct Bilirubin Neonat Indirect Bili AST ALT Alkaline Phosphatase Total Protein Albumin Serum HCG, Qual Urine Color YELLOW Urine Appearance CLEAR Urine pH 6.0 Ur Specific [place] 1.012 Urine Protein NEGATIVE Urine Glucose (UA) NEGATIVE Urine Ketones NEGATIVE Urine Blood NEGATIVE Urine Nitrite NEGATIVE Urine Bilirubin NEGATIVE Urine Urobilinogen NEGATIVE Ur Leukocyte Esterase TRACE H Urine WBC (Auto) 0 Urine RBC (Auto) 1 Squamous Epi Cells Auto 5 Urine Mucus (Auto) RARE Urine Ascorbic Acid NEGATIVE - Vital Signs Vital signs: Temp Pulse Resp BP Pulse Ox 98.2 F 92 16 148/69 H 100 04/25/18 19:57 04/25/18 19:57 04/25/18 19:57 04/25/18 19:57 04/25/18 19:57 - Laboratory Result Diagrams: 04/25/18 20:39 04/25/18 20:39 Laboratory results interpreted by me: 04/25/18 04/25/18 04/25/18 20:39 20:39 20:39 Hgb 8.7 L Hct 27.5 L MCV 64 L MCH 20.3 L MCHC 31.7 L RDW 18.6 H Plt Count 497 H Glucose 126 H Ur Leukocyte Esterase TRACE H Discharge - Discharge Clinical Impression: Right flank pain Condition: Stable Disposition: HOME, SELF-CARE Instructions: Flank Pain ([facility]) Additional Instructions: please return to the emergency department if you have any worsening, or concern of your symptoms. Please return to the emergency department if you develop chest pain, difficulty breathing, severe abdominal pain, or ongoing vomiting. Please follow-up with your primary care physician in 2-3 days and any other recommended physicians. If prescribed, take all medications as directed. If you have any questions or concerns do not hesitate to return the emergency department for evaluation. Prescriptions: Methocarbamol [Robaxin 500 mg Tablet] 500 mg PO Q8H PRN #15 tablet PRN Reason: flank pain Naproxen [Naprosyn] 500 mg PO Q12 PRN #30 tablet PRN Reason: flank pain Referrals: ANDREA JUNG DO [Primary Care Provider] - Follow up in 3-5 days HANK OLIVAS MD [NO LOCAL MD] - Follow up in 3-5 days
[2018-04-25 21:38] LABS: ANISOCYTOSIS 1+; HYPOCHROMASIA 2+; OVALOCYTES 1+; POIKILOCYTOSIS SLIGHT; POLYCHROMASIA SLIGHT
[2018-04-25 21:39] LABS: PLATELET COMMENT ADEQUATE
[2018-04-25 21:40] LABS: MEAN CORPUSCULAR VOLUME 64 fl (80-97)
[2018-04-25 21:43] LABS: APPEARANCE,URINE CLEAR; BILIRUBIN,URINE NEGATIVE (NEGATIVE); COLOR,URINE YELLOW; GLUCOSE, URINE NEGATIVE (NEGATIVE); KETONES,URINE NEGATIVE (NEGATIVE); LEUKOCYTE ESTERASE,URINE TRACE (NEGATIVE); NITRITE,URINE NEGATIVE (NEGATIVE); PROTEIN,URINE NEGATIVE (NEGATIVE); URINE SPECIFIC GRAVITY 1.012; UROBILINOGEN,URINE NEGATIVE mg/dL (<2.0)
--- NOTE | 2018-04-25 23:09 | RADIOLOGY REPORT (SQ) ---
CT ABDOMEN PELVIS WITHOUT IV CONTRAST HISTORY: Right flank pain. COMPARISON: None. TECHNIQUE: CT scan of the abdomen and pelvis. This exam was performed according to our departmental dose-optimization program, which includes automated exposure control, adjustment of the mA and/or kV according to patient size and/or use of iterative reconstruction technique. FINDINGS: Lung bases are clear. No pleural or pericardial effusions. Pancreas and adrenal glands are unremarkable. Liver measures 20 cm. Cholecystectomy clips are present. Punctate calcification in the spleen The kidneys are normal without hydronephrosis. Subcentimeter cyst in the right kidney. No urinary tract calculus or obstructive uropathy. Small hiatal hernia. No bowel obstruction. Appendix is not well visualized; however there are no inflammatory changes in the right lower quadrant. Bilateral tubal ligation clips are present. The aorta is normal caliber. No abdominal wall hernia is seen. The osseous structures are intact. IMPRESSION: No urinary tract calculus or obstructive uropathy.
[2018-04-26 01:08] VITALS: BP 115/60
[2018-04-26 11:46] LABS: PATH REVIEW PATHOLOGIST REVIEWED
== END 2018-04-26 01:05 | disposition home or self-care (01) ==
LOC: ER 19:51
DX: R10.9 Unspecified abdominal pain (principal); Q61.01 Congenital single renal cyst; R11.0 Nausea; E11.9 Type 2 diabetes mellitus without complications; I10 Essential (primary) hypertension; F17.210 Nicotine dependence, cigarettes, uncomplicated; J44.9 Chronic obstructive pulmonary disease, unspecified; Z90.49 Acquired absence of other specified parts of digestive tract; Z98.51 Tubal ligation status; Z87.42 Personal history of other diseases of the female genital tract; Z87.19 Personal history of other diseases of the digestive system
CPT/HCPCS: 99284; 96372; 36415; 84703; 85025; 80053; 81001; 74176; J1885; S0119

== ENCOUNTER 2018-05-18 05:17 | Emergency (ER) | payer MEDICAID ==
[2018-05-18] MEDS ORDERED: HYDROMORPHONE HCL INJ/PF 2 MG/ML AMPULE IM ONE (06:36)
[2018-05-18] MEDS ORDERED: ONDANSETRON 4 MG TAB.RAPDIS PO ONE (06:38)
[2018-05-18] MEDS ORDERED: KETOROLAC TROMETHAMINE 60 MG/2 ML SDV IM ONE (06:38)
--- NOTE | 2018-05-18 06:41 | ER Document Report ---
ED General - General Chief Complaint: Pain All Over Stated Complaint: BODY PAIN Time Seen by Provider: 05/18/18 06:00 Mode of Arrival: Ambulatory Information source: Patient, [facility] Records Notes: 47-year-old female with fibromyalgia, hypertension, hypo-thyroidism, COPD, type 2 diabetes, PTSD, depression presents with complaint of neck, shoulder and back pain that started this evening. Patient states that she does have chronic neck and back pain as well as joint pain secondary to arthritis. Patient has an associated headache with nausea. Headache is located at the back of her head and described as a throbbing aching pain. She states that recently she has been under a great deal of stress because she is going through a divorce which usually flares up her pain. Patient has tried Naprosyn, baclofen, icy hot without relief. She denies any injury. She does state that this is typical of her pain flares. She denies any fever, visual changes, slurred speech chills, chest pain, shortness of breath vomiting. TRAVEL OUTSIDE OF THE [place] IN LAST 30 DAYS: No - HPI Onset: Just prior to arrival Onset/Duration: Gradual, Persistent, Worse Quality of pain: Achy, Throbbing Severity: Moderate Associated symptoms: Body/muscle aches, Headache. denies: Chest pain, Chills, Fever, Nausea, Vomiting, Shortness of breath, Weakness Exacerbated by: Movement Relieved by: Denies Similar symptoms previously: Yes Recently seen / treated by doctor: Yes - Related Data Allergies/Adverse Reactions: No Known Allergies Allergy (Verified 09/21/17 23:45) Past Medical History - General Information source: Patient, [facility] Records - Social History Smoking Status: Current Every Day Smoker Cigarette use (# per day): Yes - 12 Smoking Education Provided: Yes - Smoking cessation counseling was provided for 4 minutes at the bedside Frequency of alcohol use: None Drug Abuse: None Lives with: Alone Family History: Arthritis, CAD, COPD, DM, Hyperlipidemia, Hypertension, Malignancy, Other - Anemia Patient has suicidal ideation: No Patient has homicidal ideation: No - Past Medical History Cardiac Medical History: Reports: Hx Hypertension - on meds Pulmonary Medical History: Reports: Hx Asthma, Hx Bronchitis, Hx COPD - inhalers Neurological Medical History: Reports: Hx Migraine Endocrine Medical History: Reports: Hx Diabetes Mellitus Type 2 Renal/ Medical History: Reports: Hx Ovarian Cysts. Denies: Hx Peritoneal Dialysis GI Medical History: Reports: Hx Crohn's Disease, Hx Gastroesophageal Reflux Disease Musculoskeletal Medical History: Reports Hx Arthritis - spine, all joints, Reports Hx Fibromyalgia, Reports Hx Musculoskeletal Trauma Psychiatric Medical History: Reports: Hx Anxiety, Hx Attention Deficit Hyperactivity Disorder, Hx Depression, Hx Post Traumatic Stress Disorder Traumatic Medical History: Reports: Hx Fractures - Foot Past Surgical History: Reports: Hx Section, Hx Cholecystectomy, Hx Herniorrhaphy, Hx Tubal Ligation - Immunizations Immunizations up to date: Yes Hx Diphtheria, Pertussis, Tetanus Vaccination: Yes Review of Systems - Review of Systems Notes: REVIEW OF SYSTEMS: CONSTITUTIONAL : Denies fever, chills, or sweats. Denies recent illness. Denies weight loss, recent hospitalizations. EENT: Denies visual changes, eye pain. Denies sore throat, oral lesions, difficulty swallowing. CARDIOVASCULAR: Denies chest pain. Denies palpitations. Denies lower extremity edema. RESPIRATORY: Denies cough. Denies shortness of breath, wheezing. GASTROINTESTINAL: Denies abdominal pain or distention. Denies nausea, vomiting , or diarrhea. Denies blood in vomitus, stools, or per rectum. Denies black, tarry stools. Denies constipation. GENITOURINARY: Denies difficulty urinating, painful urination, frequency, blood in urine, or vaginal discharge. MUSCULOSKELETAL: + back or neck pain or stiffness. + joint pain or swelling. SKIN: Denies rash, lesions or sores. HEMATOLOGIC : Denies easy bruising or bleeding. LYMPHATIC: Denies swollen glands. NEUROLOGICAL: Denies confusion or altered mental status. Denies loss of consciousness. Denies dizziness or lightheadedness. . Denies weakness or paralysis. Denies problems difficulty with ambulation, slurred speech. Denies sensory loss, numbness, or tingling. Denies seizures. PSYCHIATRIC: Denies anxiety or stress. Denies depression, suicidal ideation, or homicidal ideation. Denies visual or auditory hallucinations. Physical Exam - Vital signs Vitals: Temp Pulse Resp BP Pulse Ox 98 F 76 18 145/77 H 100 05/18/18 05:22 05/18/18 05:22 05/18/18 05:22 05/18/18 05:22 05/18/18 05:22 Interpretation: Hypertensive. No: Hypoxic, Febrile - Notes Notes: PHYSICAL EXAMINATION: GENERAL: Appears to be in pain HEAD: Atraumatic, normocephalic. EYES: Pupils equal round and reactive to light, extraocular movements intact, conjunctiva are normal. ENT: Nares patent, oropharynx clear without exudates. Moist mucous membranes. NECK: Normal range of motion, supple without lymphadenopathy LUNGS: Breath sounds clear to auscultation bilaterally and equal. No wheezes rales or rhonchi. HEART: Regular rate and rhythm without murmurs ABDOMEN: Soft, nontender, nondistended abdomen. No guarding, no rebound. No masses appreciated. Female : deferred Musculoskeletal: Normal range of motion, no pitting or edema. No cyanosis. Tenderness along the paraspinal musculature of the cervical spine bilaterally as well as paraspinal tenderness of the thoracic spine. No midline tenderness. NEUROLOGICAL: Cranial nerves grossly intact. Normal speech, normal gait. Normal sensory, motor exams PSYCH: Tearful, anxious SKIN: Warm, Dry, normal turgor, no rashes or lesions noted. Course - Re-evaluation Re-evalutation: 05/18/18 07:48 47-year-old female with fibromyalgia, hypertension, hypo-thyroidism, COPD, type 2 diabetes, PTSD, depression presents with complaint of neck, shoulder and back pain that started this evening. Patient states that she does have chronic neck and back pain as well as joint pain secondary to arthritis. Patient has an associated headache with nausea. Vital signs reviewed and within normal limits upon arrival. Exam is significant for increased muscle tonicity along the paraspinal musculature of the cervical spine as well as the thoracic spine. Patient received 1 mg of Dilaudid IM, 30 mg of Toradol IM and Zofran. On reevaluation patient is resting comfortably in's states that her pain and headache have resolved. Patient was evaluated and treated as appropriate for the patient's presenting symptoms and complaint, with consideration of any critical or life threatening conditions that may be associated with their obtained history and exam as noted above. All results were discussed with patient. Patient provided the opportunity to ask questions, and express concerns. Patient was educated on treatments based on their presumed diagnosis as noted above. At this time we will discharge the patient with return precautions and follow-up recommendations. Verbal discharge instructions given a the bedside. Medication warnings reviewed. Patient is in agreement with this plan and has verbalized understanding of return precautions. After careful consideration I feel that that patient can be safely discharged from the emergency department, they were advised to followup with a primary care physician in 2-3 days. Dictation on this chart was performed using voice recognition software and may result in unintended grammatical, spelling, syntax or errors. 05/18/18 07:49 05/18/18 07:49 - Vital Signs Vital signs: Temp Pulse Resp BP Pulse Ox 98.4 F 76 18 117/65 98 05/18/18 08:28 05/18/18 08:28 05/18/18 08:28 05/18/18 08:28 05/18/18 08:28 Discharge - Discharge Clinical Impression: Elevated blood pressure reading, Nausea Cervical strain Qualifiers: Encounter type: initial encounter Qualified Code(s): S16.1XXA - Strain of muscle, fascia and tendon at neck level, initial encounter Headache Qualifiers: Headache type: unspecified Headache chronicity pattern: unspecified pattern Intractability: not intractable Qualified Code(s): R51 - Headache Strain of thoracic spine Qualifiers: Encounter type: initial encounter Qualified Code(s): S29.019A - Strain of muscle and tendon of unspecified wall of thorax, initial encounter Condition: Good Disposition: HOME, SELF-CARE Instructions: Fibromyalgia ([facility]), Neck Injury (Cervical Strain) ([facility]), Upper Back Strain ([facility]) Prescriptions: Hydrocodone/Acetaminophen [[place] 5-325 mg Tabs (6 Tab/ER Disp)] 0 tab PO Q6H #1 dspk Forms: Elevated Blood Pressure Referrals: ANDREA JUNG DO [Primary Care Provider] - Follow up as needed
[2018-05-18] MEDS ORDERED: HYDROCODONE/ACETAMINOPHEN 5-325 MG (6 TAB/ER DISP) PO PRN (07:54)
[2018-05-18 08:47] VITALS: BP 117/65
== END 2018-05-18 08:36 | disposition home or self-care (01) ==
LOC: ER 05:17
DX: I10 Essential (primary) hypertension (principal); M79.10 Myalgia, unspecified site; R11.0 Nausea; R51 Headache; S16.1XXA Strain of muscle, fascia and tendon at neck level, initial encounter; S29.019A Strain of muscle and tendon of unspecified wall of thorax, initial encounter; X58.XXXA Exposure to other specified factors, initial encounter; E03.9 Hypothyroidism, unspecified; J44.9 Chronic obstructive pulmonary disease, unspecified; E11.9 Type 2 diabetes mellitus without complications; F43.10 Post-traumatic stress disorder, unspecified; F17.210 Nicotine dependence, cigarettes, uncomplicated
CPT/HCPCS: 99406; 99283; 96372; J1885; S0119; J1170

== ENCOUNTER 2018-07-11 04:08 | Emergency (ER) | payer MEDICAID ==
[2018-07-11] MEDS ORDERED: DIPHENHYDRAMINE HCL 50 MG/ML VIAL IV ONE (04:49)
[2018-07-11] MEDS ORDERED: KETOROLAC TROMETHAMINE INJ/PF 30 MG/1 ML SDV IV ONE (04:49)
[2018-07-11] MEDS ORDERED: METOCLOPRAMIDE HCL INJ/PF 10 MG/2 ML SDV IV ONE (04:49)
[2018-07-11] MEDS ORDERED: FAMOTIDINE INJ/PF 20 MG/2 ML SDV IV ONE (04:50)
--- NOTE | 2018-07-11 05:06 | ER Document Report ---
ED General - General Chief Complaint: Allergic Reaction Stated Complaint: SKIN PROBLEM Time Seen by Provider: 07/11/18 04:40 Notes: Patient is a 48-year-old female that comes to the emergency department for chief complaint of dry skin and itchy skin over the arms and legs in addition to a migraine. She states that she thinks she is reacting for to her sleeping medication because whenever she takes that she seems to get the dry itchy skin or rash. She has tried different topical steroids and creams on her arms. She also states that she has a headache over the front of her head and on the side of her head, she reports some tightness in her neck on the right side and shoulder as well. She denies head injury, fever, she states she frequently gets headaches like this almost every day. She states at times her Topamax does not work, she took it earlier and she still has a headache. She reports some nausea and photophobia, denies phonophobia, vomiting, numbness, visual changes. TRAVEL OUTSIDE OF THE [place] IN LAST 30 DAYS: No - Related Data Allergies/Adverse Reactions: No Known Allergies Allergy (Verified 09/21/17 23:45) Past Medical History - General Information source: Patient - Social History Smoking Status: Never Smoker Drug Abuse: None Lives with: Family Family History: Arthritis, CAD, COPD, DM, Hyperlipidemia, Hypertension, Malignancy, Other - Anemia - Past Medical History Cardiac Medical History: Reports: Hx Hypertension - on meds Pulmonary Medical History: Reports: Hx Asthma, Hx Bronchitis, Hx COPD - inhalers Neurological Medical History: Reports: Hx Migraine Endocrine Medical History: Reports: Hx Diabetes Mellitus Type 2 Renal/ Medical History: Reports: Hx Ovarian Cysts. Denies: Hx Peritoneal Dialysis GI Medical History: Reports: Hx Crohn's Disease, Hx Gastroesophageal Reflux Disease Musculoskeletal Medical History: Reports Hx Arthritis - spine, all joints, Reports Hx Fibromyalgia, Reports Hx Musculoskeletal Trauma Psychiatric Medical History: Reports: Hx Anxiety, Hx Attention Deficit Hyperactivity Disorder, Hx Depression, Hx Post Traumatic Stress Disorder Traumatic Medical History: Reports: Hx Fractures - Foot Past Surgical History: Reports: Hx Section, Hx Cholecystectomy, Hx Herniorrhaphy, Hx Tubal Ligation - Immunizations Immunizations up to date: Yes Hx Diphtheria, Pertussis, Tetanus Vaccination: Yes Review of Systems - Review of Systems Constitutional: No symptoms reported EENT: No symptoms reported Cardiovascular: No symptoms reported Respiratory: No symptoms reported Gastrointestinal: No symptoms reported Genitourinary: No symptoms reported Female Genitourinary: No symptoms reported Musculoskeletal: See HPI Skin: See HPI Hematologic/Lymphatic: No symptoms reported Neurological/Psychological: See HPI Physical Exam - Vital signs Vitals: Temp Pulse Resp BP Pulse Ox 98.1 F 73 20 120/61 100 07/11/18 04:12 07/11/18 04:12 07/11/18 04:12 07/11/18 04:12 07/11/18 04:12 - Notes Notes: GENERAL: Alert, interacts well. No acute distress. HEAD: Normocephalic, atraumatic. EYES: Pupils equal, round, and reactive to light. Extraocular movements intact. ENT: Oral mucosa moist, tongue midline. Oropharynx unremarkable. Airway patent. Nares patent, no nasal septal hematoma, TM's intact. NECK: Full range of motion. Supple. Trachea midline. LUNGS: Clear to auscultation bilaterally, no wheezes, rales, or rhonchi. No respiratory distress. HEART: Regular rate and rhythm. No murmur ABDOMEN: Soft, non-tender. Non-distended. Bowel sounds present in all 4 quadrants. GENITOURINARY: Deferred EXTREMITIES: Moves all 4 extremities spontaneously. No edema, normal radial and dorsalis pedis pulses bilaterally. No cyanosis. BACK: Mild tenderness over the right paracervical and trapezius muscles, pain with lateral range of motion especially to the left. No cervical, thoracic, lumbar midline tenderness. No saddle anesthesia, normal distal neurovascular exam. NEUROLOGICAL: Alert and oriented x3. Normal speech. [cranial nerves II through XII grossly intact]. PSYCH: Normal affect, normal mood. SKIN: Warm, dry, normal turgor. No rashes or lesions noted. Dry skin over the bilateral forearms, otherwise unremarkable. Course - Re-evaluation Re-evalutation: Patient is very expressive on evaluation, she is actually alert and well- appearing. I do not see a rash, I only see dry skin over the forearms, she does have some tenderness over the right paracervical and trapezius muscles with some symptoms suggestive of tension headache and migraine, however she has no photophobia on my exam and she is talkative. Vital signs unremarkable. Patient characterizes her symptoms as something she gets all the time including the rash and the headache. I do have a low suspicion of intracranial hemorrhage , subarachnoid hemorrhage, meningitis, infection, allergic reaction, anaphylaxis. Patient reevaluated after medications and now she is sleeping. She states her headache actually completely resolved. Discussed home strategy and after discussion decision was made to provide her with dexamethasone because of her skin irritation/itching symptoms and her headaches. She has good follow-up with primary care and neurology. Discussed return precautions in detail with patient, patient states understanding and agreement. - Vital Signs Vital signs: Temp Pulse Resp BP Pulse Ox 98.1 F 73 20 120/61 100 07/11/18 04:12 07/11/18 04:12 07/11/18 04:12 07/11/18 04:12 07/11/18 04:12 Discharge - Discharge Clinical Impression: Skin irritation Headache Qualifiers: Headache type: unspecified Headache chronicity pattern: acute headache Intractability: not intractable Qualified Code(s): R51 - Headache Condition: Stable Disposition: HOME, SELF-CARE Additional Instructions: Your evaluation is consistent with a tension headache triggering a migraine. You have begun management for this. I do recommend heat and massage for your neck/shoulder on the right side. Continue current medications. You were given dexamethasone for both migraines and for itching, you can take [id number] antihistamines as well, I recommend moisturizing cream for your forearms at this time. Follow-up with your primary care and your neurologist. Return if you worsen including severe headache, vomiting, fever, or any other concerning or worsening symptoms. Referrals: ANDREA JUNG DO [Primary Care Provider] - Follow up as needed
[2018-07-11] MEDS ORDERED: DEXAMETHASONE SOD PHOS INJ 10 MG/1 ML VIAL IV ONE (06:21)
[2018-07-11 06:38] VITALS: BP 117/85
== END 2018-07-11 06:38 | disposition home or self-care (01) ==
LOC: ER 04:08
DX: L98.8 Other specified disorders of the skin and subcutaneous tissue (principal); R51 Headache; R11.0 Nausea
CPT/HCPCS: 99283; 96374; 96375; J1200; J1885; J2765; S0028

== ENCOUNTER → 2018-09-16 | Outpatient (CLI) | payer MEDICAID ==
--- NOTE | 2018-09-16 16:37 | WOMENS IMAGING REPORT ---
EXAM DESCRIPTION: BILAT SCREENING MAMMO W/CAD COMPLETED DATE/TIME: 09/16/2018 11:52 am REASON FOR STUDY: Z12.31 SCREENING MAMMO Z12.31 ENCNTR SCREEN MAMMOGRAM FOR MALIGNANT NEOPLASM OF B RE COMPARISON: 2015 TECHNIQUE: Standard craniocaudal and mediolateral oblique views of each breast recorded using digita l acquisition. LIMITATIONS: None. FINDINGS: No masses, calcifications or architectural distortion. No areas of suspicion. Read with the assistance of CAD. .[facility] - R2 [employer] Version 1.3 .[facility] Imaging - R2 Cenova Version 2.1 .[facility] - R2 Cenova Version 2.4 .[facility] [place] - R2 Cenova Version 2.4 .[facility] - R2 [employer] Version 9.2 IMPRESSION: NORMAL MAMMOGRAM. BIRADS 1. BREAST DENSITY: a. The breasts are almost entirely fatty. BIRAD: 1 NEGATIVE RECOMMENDATION: ROUTINE SCREENING COMMENT: The patient has been notified of the results by letter per MQSA requirements. Additional no tification policies are in place for contacting patient with suspicious or incomplete findings. Quality ID #[id number]: The [employer] recommends an annual screening mammogram for women aged 40 years or over. This facility utilizes a reminder system to ensure that all patients receive reminder letters, and/or direct phone calls for appointments. This includes reminders for routine scr eening mammograms, diagnostic mammograms, or other Breast Imaging Interventions when appropriate. Th is patient will be placed in the appropriate reminder system. The [employer] ([employer]) has developed recommendations for screening MRI of the breast s in certain patient populations, to be used in conjunction with mammography. Breast MRI surveillanc e may be appropriate for women with more than 20% lifetime risk of developing breast cancer as deter mined by genetic testing, significant family history of the disease, or history of mantle radiation f or Hodgkins Disease. ACR Practice Guidelines 2008. TECHNICAL DOCUMENTATION: FINDING NUMBER: (1) ASSESSMENT: (1) JOB ID: [id number] [employer]- All Rights Reserved Reading location - IP/workstation name: [email or web address]
== END ==
LOC: WI 11:33
PROVIDERS: ATTEND Family Medicine
DX: Z12.31 Encounter for screening mammogram for malignant neoplasm of breast (principal)
CPT/HCPCS: 77067

== ENCOUNTER 2018-11-03 00:29 | Emergency (ER) | payer MEDICAID ==
--- NOTE | 2018-11-03 01:15 | ER Document Report ---
ED General - General Chief Complaint: Vaginal Pain Stated Complaint: VAGINAL ISSUE Time Seen by Provider: 11/03/18 00:49 Primary Care Provider: ANDREA JUNG DO [Primary Care Provider] - Follow up in 3-5 days TRAVEL OUTSIDE OF THE [place] IN LAST 30 DAYS: No - HPI Notes: Patient is a 48-year-old female that presents to the emergency department for chief complaint of vaginal itching and discharge. Patient reports 2 weeks of vaginal irritation and itching. She has a thick white vaginal discharge. She states she has used [id number] Monistat once with no improvement of her symptoms. She states she does get yeast infections prior to menstrual cycles and did have some mild vaginal bleeding today. She states she is premenopausal and her cycles are very irregular. She has a history of 2 C-sections and tubal ligation in the past. She is also reporting a crampy lower abdominal discomfort. She denies any nausea, vomiting, diarrhea, constipation, fevers or chills. Patient does endorse dysuria but denies urinary frequency Past Medical History: Diabetes, hypertension, hyperlipidemia, hypothyroidism, fatty liver Past Surgical History: x2, tubal ligation, cholecystectomy Social History: Denies drugs alcohol and tobacco Family History: Reviewed and noncontributory for presenting illness Allergies: Reviewed, see documented allergy list. REVIEW OF SYSTEMS: CONSTITUTIONAL : No fever No chills No diaphoresis No recent illness EENT: No vision changes No congestion No sore throat CARDIOVASCULAR: No chest pain No palpitations RESPIRATORY: No shortness of breath No cough No difficulty breathing GASTROINTESTINAL: No abdominal pain No nausea No vomiting No diarrhea GENITOURINARY: dysuria vaginal discharge No hematuria No difficulty urinating MUSCULOSKELETAL: No back pain No leg pain No arm pain SKIN: No rashes No lesions LYMPHATIC: No swollen, enlarged glands. NEUROLOGICAL: No lightheadedness No headache No weakness No paresthesias PSYCHIATRIC: No anxiety No depression PHYSICAL EXAMINATION: Vital signs reviewed, nursing noted reviewed. GENERAL: Well-appearing, obese and in no acute distress. HEAD: Atraumatic, normocephalic. EYES: Eyes appear normal, extraocular movements intact, sclera anicteric, conjunctiva are normal. ENT: nares patent, oropharynx clear without exudates. Moist mucous membranes. NECK: Normal range of motion, supple without lymphadenopathy LUNGS: Breath sounds clear to auscultation bilaterally and equal. No wheezes rales or rhonchi. HEART: Regular rate and rhythm without murmurs ABDOMEN: Soft, nontender, normoactive bowel sounds. No rebound, guarding, or rigidity. No masses appreciated. : Vulvar erythema, thick white vaginal discharge, no cervical lesions or excoriation or tenderness, no adnexal tenderness or fullness, no uterine tenderness. EXTREMITIES: Nontender, good range of motion, no pitting or edema. NEUROLOGICAL: No focal neurological deficits. Moves all extremities spontaneously Motor and sensory grossly intact on exam. PSYCH: Normal mood, normal affect. SKIN: Warm, Dry, normal turgor, no rashes or lesions noted on exposed skin - Related Data Allergies/Adverse Reactions: No Known Allergies Allergy (Verified 11/03/18 00:31) Past Medical History - Social History Smoking Status: Never Smoker Family History: Arthritis, CAD, COPD, DM, Hyperlipidemia, Hypertension, Malignancy, Other - Past Medical History Cardiac Medical History: Reports: Hx Hypertension - on meds Pulmonary Medical History: Reports: Hx Asthma, Hx Bronchitis, Hx COPD - inhalers Neurological Medical History: Reports: Hx Migraine Endocrine Medical History: Reports: Hx Diabetes Mellitus Type 2 Renal/ Medical History: Reports: Hx Ovarian Cysts. Denies: Hx Peritoneal Dialysis GI Medical History: Reports: Hx Crohn's Disease, Hx Gastroesophageal Reflux Disease Musculoskeletal Medical History: Reports Hx Arthritis - spine, all joints, Reports Hx Fibromyalgia, Reports Hx Musculoskeletal Trauma Psychiatric Medical History: Reports: Hx Anxiety, Hx Attention Deficit Hyperactivity Disorder, Hx Depression, Hx Post Traumatic Stress Disorder Traumatic Medical History: Reports: Hx Fractures - Foot Past Surgical History: Reports: Hx Section, Hx Cholecystectomy, Hx Herniorrhaphy, Hx Tubal Ligation - Immunizations Immunizations up to date: Yes Hx Diphtheria, Pertussis, Tetanus Vaccination: Yes Physical Exam - Vital signs Vitals: Temp Pulse Resp BP Pulse Ox 97.7 F 80 16 154/77 H 99 11/03/18 00:37 11/03/18 00:37 11/03/18 00:37 11/03/18 00:37 11/03/18 00:37 Course - Re-evaluation Re-evalutation: 11/03/18 01:15 Vitals reviewed. Nursing notes reviewed. Patient offered pain medication but declined stating she took Tylenol just prior to coming to the ER. 11/03/18 01:39 Patient's urinalysis is negative for infection. Wet prep is consistent with yeast vaginitis. She denied any concern for gonorrhea chlamydia and states she is not currently sexually active. Patient was given Diflucan in the ER and a prescription for a second dose if she is continued to have symptoms in 1 week. She was counseled on return precautions and verbalized understanding. Laboratory 11/03/18 11/03/18 01:00 01:00 Urine Color YELLOW Urine Appearance CLEAR Urine pH 5.0 Ur Specific [place] 1.021 Urine Protein NEGATIVE Urine Glucose (UA) NEGATIVE Urine Ketones NEGATIVE Urine Blood NEGATIVE Urine Nitrite NEGATIVE Urine Bilirubin NEGATIVE Urine Urobilinogen NEGATIVE Ur Leukocyte Esterase NEGATIVE Urine WBC (Auto) 1 Urine RBC (Auto) 1 Squamous Epi Cells Auto 1 Urine Mucus (Auto) RARE Urine Ascorbic Acid NEGATIVE Epi Cells (Wet Prep) 3+ EPITHELIALS SEEN Bacteria (Wet Prep) 3+ BACTERIA SEEN Trichomonas (Wet Prep) NO TRICHOMONAS SEEN Vaginal WBC 3+ WBCS SEEN Vaginal RBC NO RBCS SEEN Vaginal Yeast BUDDING YEAST SEEN - Vital Signs Vital signs: Temp Pulse Resp BP Pulse Ox 97.7 F 80 16 154/77 H 99 11/03/18 00:37 11/03/18 00:37 11/03/18 00:37 11/03/18 00:37 11/03/18 00:37 Discharge - Discharge Clinical Impression: Yeast vaginitis Condition: Stable Disposition: HOME, SELF-CARE Instructions: Vaginal Yeast Infection ([facility]) Additional Instructions: Please return to the emergency department if you have any worsening, or concern of your symptoms. Please return to the emergency department if you develop chest pain, difficulty breathing, severe abdominal pain, or ongoing vomiting. Please follow-up with your primary care physician in 2-3 days and any other recommended physicians. If prescribed, take all medications as directed. If you have any questions or concerns do not hesitate to return the emergency department for evaluation. If you are still having symptoms in 1 week fill the prescription for Diflucan and take the second dose on 11/10/18. Prescriptions: Fluconazole [Diflucan] 150 mg PO ONCE PRN #1 tablet PRN Reason: Referrals: ANDREA JUNG DO [Primary Care Provider] - Follow up in 3-5 days
[2018-11-03 01:24] LABS: BACTERIA (WET MOUNT) 3+ BACTERIA SEEN; EPITHELIALS (WET MOUNT) 3+ EPITHELIALS SEEN; RBCS (WET MOUNT) NO RBCS SEEN; T.VAGINALIS (WET MOUNT) NO TRICHOMONAS SEEN; WBCS (WET MOUNT) 3+ WBCS SEEN; YEAST (WET MOUNT) BUDDING YEAST SEEN
[2018-11-03] MEDS ORDERED: FLUCONAZOLE 100 MG TABLET PO ONE (01:25)
[2018-11-03 01:34] LABS: APPEARANCE,URINE CLEAR; BILIRUBIN,URINE NEGATIVE (NEGATIVE); COLOR,URINE YELLOW; GLUCOSE, URINE NEGATIVE (NEGATIVE); KETONES,URINE NEGATIVE (NEGATIVE); LEUKOCYTE ESTERASE,URINE NEGATIVE (NEGATIVE); NITRITE,URINE NEGATIVE (NEGATIVE); PROTEIN,URINE NEGATIVE (NEGATIVE); URINE SPECIFIC GRAVITY 1.021; UROBILINOGEN,URINE NEGATIVE mg/dL (<2.0)
[2018-11-03 01:43] VITALS: BP 132/58
== END 2018-11-03 01:45 | disposition home or self-care (01) ==
LOC: ER 00:29
DX: B37.3 Candidiasis of vulva and vagina (principal); R10.2 Pelvic and perineal pain; N89.8 Other specified noninflammatory disorders of vagina; R10.30 Lower abdominal pain, unspecified; Z79.899 Other long term (current) drug therapy; E11.9 Type 2 diabetes mellitus without complications; I10 Essential (primary) hypertension
CPT/HCPCS: 99283; 87210; 81001; J3490

== ENCOUNTER 2018-11-04 16:31 | Emergency (ER) | payer MEDICAID ==
[2018-11-04] MEDS ORDERED: ONDANSETRON 4 MG TAB.RAPDIS PO ONE (18:22)
--- NOTE | 2018-11-04 18:26 | ER Document Report ---
ED Medical Screen (RME) - General Chief Complaint: Abdominal Pain Stated Complaint: ABDOMINAL PAIN Time Seen by Provider: 11/04/18 17:14 Primary Care Provider: ANDREA PARIS DO [Primary Care Provider] - Follow up as needed Mode of Arrival: Ambulatory Information source: Patient Notes: Patient is a 48-year-old female who presents the emergency department chief complaint of right upper quadrant pain. Patient reports pain has been ongoing for approximately 4 months with worsening over the last couple of days. Patient reports associated nausea but denies any fevers, vomiting or diarrhea. Patient has past medical history of diabetes, fatty liver and cholecystectomy. Patient's PCP is Dr. Paris. Exam: Tenderness to palpation in the right upper quadrant without guarding or rebound. I have greeted and performed a rapid initial assessment of this patient. A comprehensive ED assessment and evaluation of the patient, analysis of test results and completion of the medical decision making process will be conducted by additional ED providers. Dictation of this chart was performed using voice recognition software; therefore, there may be some unintended grammatical errors. TRAVEL OUTSIDE OF THE [place] IN LAST 30 DAYS: No - Related Data Allergies/Adverse Reactions: No Known Allergies Allergy (Verified 11/03/18 00:31) Past Medical History - Past Medical History Cardiac Medical History: Reports: Hx Hypertension - on meds Pulmonary Medical History: Reports: Hx Asthma, Hx Bronchitis, Hx COPD - inhalers Neurological Medical History: Reports: Hx Migraine Endocrine Medical History: Reports: Hx Diabetes Mellitus Type 2 Renal/ Medical History: Reports: Hx Ovarian Cysts. Denies: Hx Peritoneal Dialysis GI Medical History: Reports: Hx Crohn's Disease, Hx Gastroesophageal Reflux Disease Musculoskeltal Medical History: Reports Hx Arthritis - spine, all joints, Report s Hx Fibromyalgia, Reports Hx Musculoskeletal Trauma Psychiatric Medical History: Reports: Hx Anxiety, Hx Attention Deficit Hyperactivity Disorder, Hx Depression, Hx Post Traumatic Stress Disorder Traumatic Medical History: Reports: Hx Fractures - Foot Past Surgical History: Reports: Hx Section, Hx Cholecystectomy, Hx Herniorrhaphy, Hx Tubal Ligation - Immunizations Immunizations up to date: Yes Hx Diphtheria, Pertussis, Tetanus Vaccination: Yes Physical Exam - Vital signs Vitals: Temp Pulse Resp BP Pulse Ox 98.2 F 76 16 152/82 H 96 11/04/18 17:05 11/04/18 17:05 11/04/18 17:05 11/04/18 17:05 11/04/18 17:05 Course - Vital Signs Vital signs: Temp Pulse Resp BP Pulse Ox 98.2 F 76 16 152/82 H 96 11/04/18 17:05 11/04/18 17:05 11/04/18 17:05 11/04/18 17:05 11/04/18 17:05 Doctor's Discharge - Discharge Referrals: ANDREA PARIS DO [Primary Care Provider] - Follow up as needed
[2018-11-04 19:28] LABS: ABSOLUTE BASOPHILS # (AUTO) 0.1 10^3/uL (0.0-0.2); ABSOLUTE EOSINOPHILS # (AUTO) 0.4 10^3/uL (0.0-0.6); ABSOLUTE LYMPHOCYTES (AUTO) 2.2 10^3/uL (0.5-4.7); ABSOLUTE MONOCYTES (AUTO) 0.8 10^3/uL (0.1-1.4); ABSOLUTE NEUT (AUTO) 9.1 10^3/uL (1.7-8.2); BASOPHILS % (AUTO) 0.7 % (0-2); EOSINOPHILS % (AUTO) 3.5 % (0-6); HEMATOCRIT 30.1 % (36.0-47.0); HEMOGLOBIN 9.5 g/dL (12.0-15.5); LYMPHOCYTES % (AUTO) 17.6 % (13-45); MEAN CORPUSCULAR HEMOGLOBIN 20.2 pg (27.0-33.4); MEAN CORPUSCULAR HGB CONC 31.4 g/dL (32.0-36.0); MONOCYTES % (AUTO) 6.5 % (3-13); PLATELET COUNT 425 10^3/uL (150-450); RED BLOOD COUNT 4.69 10^6/uL (3.72-5.28); RED CELL DISTRIBUTION WIDTH 18.9 % (11.5-14.0); SEGMENTED NEUTROPHILS % (AUTO) 71.7 % (42-78); TOTAL CELLS COUNTED % (AUTO) 100 %; WHITE BLOOD COUNT 12.6 10^3/uL (4.0-10.5)
[2018-11-04] MEDS ORDERED: MORPHINE SULFATE 10 MG/ML INJ IV ONE (19:28)
[2018-11-04] MEDS ORDERED: METOCLOPRAMIDE HCL ORAL SOLN 10 MG/10 ML UDCUP PO ONE (19:29)
[2018-11-04] MEDS ORDERED: LIDOCAINE 2% VISCOUS SOLN 20 ML UDCUP PO ONE (19:29)
[2018-11-04] MEDS ORDERED: MAG HYDROX/AL HYDROX/SIMETH SUSP 30 ML UDCUP PO ONE (19:29)
--- NOTE | 2018-11-04 19:31 | ER Document Report ---
ED General - General Chief Complaint: Abdominal Pain Stated Complaint: ABDOMINAL PAIN Time Seen by Provider: 11/04/18 17:14 Primary Care Provider: ANDREA PARIS DO [Primary Care Provider] - Follow up in 3-5 days Mode of Arrival: Ambulatory Information source: Patient, [facility] Records Notes: 48-year-old female with hypertension, COPD, type 2 diabetes, fatty liver presen ts with 2 days of upper abdominal pain, cramping. Patient has had associated nausea without vomiting. Her last bowel movement was this morning and denies any diarrhea, black, bloody stools. Patient describes the pain as intermittent cramping. Patient has history of cholecystectomy in 2008. She denies sick contacts. She states pain is worse with food. TRAVEL OUTSIDE OF THE [place] IN LAST 30 DAYS: No - HPI Onset: Last week Onset/Duration: Intermittent, Worse Quality of pain: Cramping Severity: Moderate Associated symptoms: Chills, Nausea, Other - Abdominal pain Exacerbated by: Food Relieved by: Denies Similar symptoms previously: Yes Recently seen / treated by doctor: Yes - Related Data Allergies/Adverse Reactions: No Known Allergies Allergy (Verified 11/03/18 00:31) Past Medical History - General Information source: Patient - Social History Smoking Status: Current Every Day Smoker Cigarette use (# per day): Yes - 10 Smoking Education Provided: Yes - Smoking cessation counseling was provided for 4 minutes at the bedside Frequency of alcohol use: None Drug Abuse: None Family History: Arthritis, CAD, COPD, DM, Hyperlipidemia, Hypertension, Malignancy, Other - Past Medical History Cardiac Medical History: Reports: Hx Hypertension - on meds Pulmonary Medical History: Reports: Hx Asthma, Hx Bronchitis, Hx COPD - inhalers Neurological Medical History: Reports: Hx Migraine Endocrine Medical History: Reports: Hx Diabetes Mellitus Type 2 Renal/ Medical History: Reports: Hx Ovarian Cysts. Denies: Hx Peritoneal Dialysis GI Medical History: Reports: Hx Crohn's Disease, Hx Gastroesophageal Reflux Disease Musculoskeletal Medical History: Reports Hx Arthritis - spine, all joints, Reports Hx Fibromyalgia, Reports Hx Musculoskeletal Trauma Psychiatric Medical History: Reports: Hx Anxiety, Hx Attention Deficit Hyperactivity Disorder, Hx Depression, Hx Post Traumatic Stress Disorder Traumatic Medical History: Reports: Hx Fractures - Foot Past Surgical History: Reports: Hx Section, Hx Cholecystectomy, Hx Herniorrhaphy, Hx Tubal Ligation - Immunizations Immunizations up to date: Yes Hx Diphtheria, Pertussis, Tetanus Vaccination: Yes Review of Systems - Review of Systems Notes: REVIEW OF SYSTEMS: CONSTITUTIONAL : Denies fever, sweats. Denies recent illness. Denies weight loss, recent hospitalizations. EENT: Denies visual changes, eye pain. Denies sore throat, oral lesions, difficulty swallowing. CARDIOVASCULAR: Denies chest pain. Denies palpitations. Denies lower extremity edema. RESPIRATORY: Denies cough. Denies shortness of breath, wheezing. GASTROINTESTINAL: Denies distention. Denies vomiting, or diarrhea. Denies blood in vomitus, stools, or per rectum. Denies black, tarry stools. Denies constipation. GENITOURINARY: Denies difficulty urinating, painful urination, frequency, blood in urine, or vaginal discharge. MUSCULOSKELETAL: Denies back or neck pain or stiffness. Denies joint pain or swelling. SKIN: Denies rash, lesions or sores. HEMATOLOGIC : Denies easy bruising or bleeding. LYMPHATIC: Denies swollen glands. NEUROLOGICAL: Denies confusion or altered mental status. Denies loss of consciousness. Denies dizziness or lightheadedness. Denies headache. Denies weakness or paralysis. Denies problems difficulty with ambulation, slurred speech. Denies sensory loss, numbness, or tingling. Denies seizures. PSYCHIATRIC: Denies anxiety or stress. Denies depression, suicidal ideation, or homicidal ideation. Denies visual or auditory hallucinations. Physical Exam - Vital signs Vitals: Temp Pulse Resp BP Pulse Ox 98.2 F 76 16 152/82 H 96 11/04/18 17:05 11/04/18 17:05 11/04/18 17:05 11/04/18 17:05 11/04/18 17:05 - Notes Notes: PHYSICAL EXAMINATION: GENERAL: Well-appearing, well-nourished and in no acute distress. HEAD: Atraumatic, normocephalic. EYES: Pupils equal round and reactive to light, extraocular movements intact, conjunctiva are normal. ENT: Nares patent, oropharynx clear without exudates. Moist mucous membranes. NECK: Normal range of motion, supple without lymphadenopathy LUNGS: Breath sounds clear to auscultation bilaterally and equal. No wheezes rales or rhonchi. HEART: Regular rate and rhythm without murmurs ABDOMEN: Soft, generalized abdominal tenderness with palpation to the right upper quadrant, epigastric and left lower quadrant. Nondistended abdomen. No guarding, no rebound. No masses appreciated. Female : deferred Musculoskeletal: Normal range of motion, no pitting or edema. No cyanosis. NEUROLOGICAL: Cranial nerves grossly intact. Normal speech, normal gait. Normal sensory, motor exams PSYCH: Normal mood, normal affect. SKIN: Warm, Dry, normal turgor, no rashes or lesions noted. Course - Re-evaluation Re-evalutation: Laboratory 11/04/18 11/04/18 11/04/18 18:57 18:57 18:57 WBC 12.6 H RBC 4.69 Hgb 9.5 L Hct 30.1 L MCV 64 L MCH 20.2 L MCHC 31.4 L RDW 18.9 H Plt Count 425 Seg Neutrophils % 71.7 Lymphocytes % 17.6 Monocytes % 6.5 Eosinophils % 3.5 Basophils % 0.7 Absolute Neutrophils 9.1 H Absolute Lymphocytes 2.2 Absolute Monocytes 0.8 Absolute Eosinophils 0.4 Absolute Basophils 0.1 Toxic Granulation SLIGHT Platelet Comment ADEQUATE Hypochromasia 1+ Poikilocytosis SLIGHT Anisocytosis 2+ Microcytosis 3+ Ovalocytes SLIGHT Sodium 135.1 L Potassium 4.2 Chloride 100 Carbon Dioxide 28 Anion Gap 7 BUN 8 Creatinine 0.86 Est GFR ( Amer) > 60 Est GFR (Non-Af Amer) > 60 Glucose 91 Calcium 10.1 Total Bilirubin 0.3 Direct Bilirubin 0.2 Neonat Total Bilirubin Not Reportable Neonat Direct Bilirubin Not Reportable Neonat Indirect Bili Not Reportable AST 18 ALT 22 Alkaline Phosphatase 68 Total Protein 6.9 Albumin 4.0 Lipase 53.4 Serum HCG, Qual NEGATIVE Urine Color Urine Appearance Urine pH Ur Specific [place] Urine Protein Urine Glucose (UA) Urine Ketones Urine Blood Urine Nitrite Urine Bilirubin Urine Urobilinogen Ur Leukocyte Esterase Urine WBC (Auto) Urine RBC (Auto) Urine Bacteria (Auto) Squamous Epi Cells Auto Urine Mucus (Auto) Urine Ascorbic Acid 11/04/18 18:57 WBC RBC Hgb Hct MCV MCH MCHC RDW Plt Count Seg Neutrophils % Lymphocytes % Monocytes % Eosinophils % Basophils % Absolute Neutrophils Absolute Lymphocytes Absolute Monocytes Absolute Eosinophils Absolute Basophils Toxic Granulation Platelet Comment Hypochromasia Poikilocytosis Anisocytosis Microcytosis Ovalocytes Sodium Potassium Chloride Carbon Dioxide Anion Gap BUN Creatinine Est GFR ( Amer) Est GFR (Non-Af Amer) Glucose Calcium Total Bilirubin Direct Bilirubin Neonat Total Bilirubin Neonat Direct Bilirubin Neonat Indirect Bili AST ALT Alkaline Phosphatase Total Protein Albumin Lipase Serum HCG, Qual Urine Color YELLOW Urine Appearance SLIGHTLY-CLOUDY Urine pH 6.0 Ur Specific [place] 1.011 Urine Protein NEGATIVE Urine Glucose (UA) NEGATIVE Urine Ketones NEGATIVE Urine Blood NEGATIVE Urine Nitrite NEGATIVE Urine Bilirubin NEGATIVE Urine Urobilinogen NEGATIVE Ur Leukocyte Esterase TRACE H Urine WBC (Auto) 1 Urine RBC (Auto) 1 Urine Bacteria (Auto) TRACE Squamous Epi Cells Auto 7 Urine Mucus (Auto) RARE Urine Ascorbic Acid NEGATIVE Abdomen Ultrasound 11/04/18 19:27 IMPRESSION: No evidence of acute abdominal findings. Abdomen/Pelvis CT 11/04/18 19:29 IMPRESSION: 1. No acute findings 2. Previous cholecystectomy. Temp Pulse Resp BP Pulse Ox 98.6 F 62 18 123/72 98 11/04/18 22:06 11/04/18 22:06 11/04/18 22:06 11/04/18 22:06 11/04/18 22:06 48-year-old female presents with chief complaint abdominal pain, associated nausea. Patient states that her pain is in the epigastric and right upper quadrant but has diffuse generalized abdominal pain without guarding or rebound. Vital signs reviewed and within normal limits upon arrival. Patient is afebrile, normotensive. She does not appear toxic or dehydrated. She is in no acute distress. Ultrasound of the right upper quadrant as well as the abdomen and pelvis showed no acute findings. Did show incidental findings of a renal cyst and small hiatal hernia which was discussed with the patient. CBC, CMP, urinalysis are unremarkable. Patient did report resolution of her pain after seeing GI cocktail. Patient is tolerating p.o. Patient was provided copies of her imaging and lab work that were performed today to bring to her primary care physician Dr. Paris on reevaluation. 11/04/18 21:22 Patient reevaluated after receiving a GI cocktail and reports resolution of her pain. She states she now has a headache after receiving IV contrast. 11/04/18 23:59 Patient was evaluated and treated as appropriate for the patient's presenting symptoms and complaint, with consideration of any critical or life threatening conditions that may be associated with their obtained history and exam as noted above. All results were discussed with patient and family members who are at the bedside. Patient provided the opportunity to ask questions, and express concerns. Patient was educated on treatments based on their presumed diagnosis as noted above. At this time we will discharge the patient with return precautions and follow-up recommendations. Verbal discharge instructions given a the bedside. Medication warnings reviewed. Patient is in agreement with this plan and has verbalized understanding of return precautions. After careful consideration I feel that that patient can be safely discharged from the emergency department, they were advised to followup with a primary care physician in 2-3 days. Dictation on this chart was performed using voice recognition software and may result in unintended grammatical, spelling, syntax or errors. - Vital Signs Vital signs: Temp Pulse Resp BP Pulse Ox 98.6 F 62 18 123/72 98 11/04/18 22:06 11/04/18 22:06 11/04/18 22:06 11/04/18 22:06 11/04/18 22:06 - Laboratory Result Diagrams: 11/04/18 18:57 11/04/18 18:57 Laboratory results interpreted by me: 11/04/18 11/04/18 11/04/18 18:57 18:57 18:57 WBC 12.6 H Hgb 9.5 L Hct 30.1 L MCV 64 L MCH 20.2 L MCHC 31.4 L RDW 18.9 H Absolute Neutrophils 9.1 H Sodium 135.1 L Ur Leukocyte Esterase TRACE H - Diagnostic Test Radiology reviewed: Image reviewed, Reports reviewed Discharge - Discharge Clinical Impression: Hiatal hernia, Fatty liver, Elevated blood pressure reading Abdominal pain Qualifiers: Abdominal location: generalized Qualified Code(s): R10.84 - Generalized abdominal pain Condition: Good Disposition: HOME, SELF-CARE Instructions: Abdominal Pain ([facility]), Antinausea Medication ([facility]), Hernia ([facility]) Prescriptions: Sucralfate [Carafate 1 gm Tablet] 1 gm PO ACHS #30 tablet Forms: Elevated Blood Pressure Referrals: ANDREA PARIS DO [Primary Care Provider] - Follow up in 3-5 days
[2018-11-04 19:34] LABS: APPEARANCE,URINE SLIGHTLY-CLOUDY; BILIRUBIN,URINE NEGATIVE (NEGATIVE); COLOR,URINE YELLOW; GLUCOSE, URINE NEGATIVE (NEGATIVE); KETONES,URINE NEGATIVE (NEGATIVE); LEUKOCYTE ESTERASE,URINE TRACE (NEGATIVE); NITRITE,URINE NEGATIVE (NEGATIVE); PROTEIN,URINE NEGATIVE (NEGATIVE); URINE SPECIFIC GRAVITY 1.011; UROBILINOGEN,URINE NEGATIVE mg/dL (<2.0)
[2018-11-04 19:46] LABS: ALANINE AMINOTRANSFERASE 22 U/L (9-52); ALKALINE PHOSPHATASE 68 U/L (38-126); ANION GAP 7 (5-19); ANISOCYTOSIS 2+; ASPARTATE AMINO TRANSFERASE 18 U/L (14-36); BILIRUBIN,DIRECT 0.2 mg/dL (0.0-0.4); BILIRUBIN,TOTAL 0.3 mg/dL (0.2-1.3); BLOOD UREA NITROGEN 8 mg/dL (7-20); CALCIUM 10.1 mg/dL (8.4-10.2); CARBON DIOXIDE 28 mmol/L (22-30); CHLORIDE 100 mmol/L (98-107); GLUCOSE 91 mg/dL (75-110); HYPOCHROMASIA 1+; LIPASE 53.4 U/L (23-300); MEAN CORPUSCULAR VOLUME 64 fl (80-97); OVALOCYTES SLIGHT; PLATELET COMMENT ADEQUATE; POIKILOCYTOSIS SLIGHT; POTASSIUM 4.2 mmol/L (3.6-5.0); SODIUM 135.1 mmol/L (137-145); TOTAL PROTEIN 6.9 g/dL (6.3-8.2); TOXIC GRANULATION SLIGHT
--- NOTE | 2018-11-04 21:16 | RADIOLOGY REPORT (SQ) ---
EXAM DESCRIPTION: [facility]: CT ABDOMEN PELVIS WITH IV CONTRAST CLINICAL HISTORY: 48 years Female; Generalized abdominal pain TECHNIQUE: CT of the abdomen and pelvis using intravenous 100 mL Omnipaque [address] scans at this facility use dose modulation, iterative reconstruction, and/or weight based dosing when appropriate to reduce radiation dose to as low as reasonably achievable. COMPARISON: 04/25/2018 FINDINGS: Abdomen: Small hiatal hernia is noted. Liver:No focal lesions. No intrahepatic ductal distention. Gallbladder: Surgically absent Pancreas:Within normal limits Spleen:Within normal limits Right kidney: Exophytic 1.5 cm cyst. No hydronephrosis or suspicious lesion. Left kidney:No hydronephrosis. No focal lesion. Adrenal glands:Within normal limits Vascular structures:Within normal limits Pelvis: Small bowel: There are a few scattered air-fluid levels, but no distention. No mesenteric edema or adenopathy. Appendix:Within normal limits Colon:No distention or acute pericolonic edema. No free intraperitoneal fluid or air. Uterus: Within normal limits. Bilateral tubal ligation clips are noted. Left ovary: There are 2 low-density structures, 1.5 cm in diameter each, consistent with follicles. No follow-up indicated, Reference: J Am Stan Radiol 2013;10:675-681. No adjacent fluid/edema. These are new since the prior exam. Right adnexa is unremarkable. No acute pelvic soft tissue edema. Multilevel facet arthropathy is noted in the lumbar spine. No acute bone findings. IMPRESSION: 1. No acute findings 2. Previous cholecystectomy.
[2018-11-04] MEDS ORDERED: IBUPROFEN 600 MG TABLET PO ONE (21:23)
--- NOTE | 2018-11-04 21:39 | RADIOLOGY REPORT (SQ) ---
US ABDOMEN LIMITED HISTORY: Right upper quadrant pain. COMPARISON: None. TECHNIQUE: Grayscale and color Doppler imaging of the right upper quadrant was performed. FINDINGS: Increased echogenicity of the hepatic parenchyma with decreased through transmission and poor visualization of the portal triads, suggesting hepatic steatosis. The main portal vein has normal hepatopetal flow. There has been a prior cholecystectomy. The common bile duct measures 6 mm in caliber. The pancreas is unremarkable. No hydronephrosis or shadowing renal stones are identified. The right kidney measures 10.5 cm and contains a 1.4 cm anechoic cyst in the lower pole. The visualized portions of the IVC and aorta are patent. IMPRESSION: No evidence of acute abdominal findings.
[2018-11-04 22:07] VITALS: BP 123/72
== END 2018-11-04 22:07 | disposition home or self-care (01) ==
LOC: ER 16:31
DX: K44.9 Diaphragmatic hernia without obstruction or gangrene (principal); K76.0 Fatty (change of) liver, not elsewhere classified; Q61.01 Congenital single renal cyst; R51 Headache; R10.84 Generalized abdominal pain; R11.0 Nausea; R68.83 Chills (without fever); I10 Essential (primary) hypertension; E11.9 Type 2 diabetes mellitus without complications; J44.9 Chronic obstructive pulmonary disease, unspecified; F17.210 Nicotine dependence, cigarettes, uncomplicated; Z71.6 Tobacco abuse counseling; Z90.49 Acquired absence of other specified parts of digestive tract
CPT/HCPCS: 99284; 96374; 36415; 83690; 84703; 85025; 80053; 81001; 76705; 74177; S0119; J3490 ×4; J2270

== ENCOUNTER 2018-12-20 03:09 | Emergency (ER) | payer MEDICAID ==
[2018-12-20 03:17] VITALS: BP 142/77
== END 2018-12-20 07:44 | disposition left against medical advice (07) ==
LOC: ER 03:09
DX: Z53.21 Procedure and treatment not carried out due to patient leaving prior to being seen by health care provider (principal)

== ENCOUNTER 2019-06-23 19:24 | Emergency (ER) | payer MEDICAID ==
[2019-06-23] MEDS ORDERED: ACETAMINOPHEN 325 MG TABLET PO ONE (20:24)
--- NOTE | 2019-06-23 20:24 | ER Document Report ---
ED Medical Screen (RME) - General Chief Complaint: Arm Pain Stated Complaint: FALL,SHOULDER AND ELBOW PAIN Time Seen by Provider: 06/23/19 20:20 Primary Care Provider: ANDREA JUNG DO [Primary Care Provider] - Follow up as needed Mode of Arrival: Ambulatory Information source: Patient Notes: 48-year-old female presented to ED for complaint of right shoulder and elbow pain. She states about 430 5:00 she was seen in the bathtub and she fell into the bathtub. She states she is already torn the rotator on the left side. And she thinks she might of injured his rotator cuff. She states she is not able to move the arm due to the pain. She states she has had surgery to the left rotator cuff no surgeries or injuries to the right shoulder in the past. She has full range of motion to the shoulder and the elbow as long as the weight is held off of the area. Will get x-ray of the shoulder there is no tenderness to the elbow at this time. There is no swelling to the elbow. I have greeted and performed a rapid initial assessment of this patient. A comprehensive ED assessment and evaluation of the patient, analysis of test results and completion of medical decision making process will be conducted by an additional ED providers. TRAVEL OUTSIDE OF THE [place] IN LAST 30 DAYS: No - Related Data Allergies/Adverse Reactions: No Known Allergies Allergy (Verified 12/20/18 03:11) Past Medical History - Past Medical History Cardiac Medical History: Reports: Hx Hypertension - on meds Pulmonary Medical History: Reports: Hx Asthma, Hx Bronchitis, Hx COPD - inhalers Neurological Medical History: Reports: Hx Migraine Endocrine Medical History: Reports: Hx Diabetes Mellitus Type 2 Renal/ Medical History: Reports: Hx Ovarian Cysts. Denies: Hx Peritoneal Dialysis GI Medical History: Reports: Hx Crohn's Disease, Hx Gastroesophageal Reflux Disease Musculoskeltal Medical History: Reports Hx Arthritis - spine, all joints, Reports Hx Fibromyalgia, Reports Hx Musculoskeletal Trauma Psychiatric Medical History: Reports: Hx Anxiety, Hx Attention Deficit Hyperactivity Disorder, Hx Depression, Hx Post Traumatic Stress Disorder Traumatic Medical History: Reports: Hx Fractures - Foot Past Surgical History: Reports: Hx Section, Hx Cholecystectomy, Hx Herniorrhaphy, Hx Tubal Ligation - Immunizations Immunizations up to date: Yes Hx Diphtheria, Pertussis, Tetanus Vaccination: Yes Doctor's Discharge - Discharge Referrals: ANDREA JUNG DO [Primary Care Provider] - Follow up as needed
--- NOTE | 2019-06-23 21:30 | RADIOLOGY REPORT (SQ) ---
3 VIEWS OF RIGHT SHOULDER EXAM DATE: 06/23/2019 8:25 PM SOCIAL INSURANCE ADVISER HISTORY: pain and injury. COMPARISON: None. FINDINGS: No acute fracture or dislocation is seen. The joint spaces are preserved. No radiopaque foreign body is identified. Calcific tendinosis of the rotator cuff. IMPRESSION: No acute fracture or malalignment.
[2019-06-23] MEDS ORDERED: ACETAMINOPHEN 325 MG TABLET ONE (23:07)
[2019-06-23] MEDS ORDERED: MORPHINE SULFATE 10 MG/ML INJ IM ONE (23:23)
--- NOTE | 2019-06-23 23:28 | ER Document Report ---
ED General - General Chief Complaint: Arm Pain Stated Complaint: FALL,SHOULDER AND ELBOW PAIN Time Seen by Provider: 06/23/19 20:20 Primary Care Provider: ANDREA JUNG DO [Primary Care Provider] - Follow up as needed Mode of Arrival: Ambulatory Information source: Patient, [facility] Records Notes: 48-year-old female with COPD, fibromyalgia, type 2 diabetes, arthritis presents with complaint of right shoulder pain that started after a trip and fall that occurred 7 hours prior to arrival while cleaning. Patient states that she fell into a tub and struck her right shoulder. She states that she struck her head as well but denies any loss of consciousness, current headache, blurred vision, vomiting. TRAVEL OUTSIDE OF THE [place] IN LAST 30 DAYS: No - HPI Onset: This afternoon Onset/Duration: Sudden Quality of pain: Throbbing Severity: Moderate Pain Level: 2 Associated symptoms: denies: Chest pain, Nonproductive cough, Productive cough, Leg swelling, Nausea, Shortness of breath, Weakness Exacerbated by: Movement Relieved by: Remaining still Similar symptoms previously: Yes Recently seen / treated by doctor: No - Related Data Allergies/Adverse Reactions: No Known Allergies Allergy (Verified 12/20/18 03:11) Past Medical History - General Information source: Patient - Social History Smoking Status: Never Smoker Frequency of alcohol use: None Drug Abuse: None Lives with: Family Family History: Arthritis, CAD, COPD, DM, Hyperlipidemia, Hypertension, Malignancy, Other Patient has suicidal ideation: No Patient has homicidal ideation: No - Past Medical History Cardiac Medical History: Reports: Hx Hypertension - on meds Pulmonary Medical History: Reports: Hx Asthma, Hx Bronchitis, Hx COPD - inhalers Neurological Medical History: Reports: Hx Migraine Endocrine Medical History: Reports: Hx Diabetes Mellitus Type 2 Renal/ Medical History: Reports: Hx Ovarian Cysts. Denies: Hx Peritoneal Dialysis GI Medical History: Reports: Hx Crohn's Disease, Hx Gastroesophageal Reflux Disease Musculoskeletal Medical History: Reports Hx Arthritis - spine, all joints, Reports Hx Fibromyalgia, Reports Hx Musculoskeletal Trauma Psychiatric Medical History: Reports: Hx Anxiety, Hx Attention Deficit Hyperactivity Disorder, Hx Depression, Hx Post Traumatic Stress Disorder Traumatic Medical History: Reports: Hx Fractures - Foot Past Surgical History: Reports: Hx Section - x2, Hx Cholecystectomy, Hx Herniorrhaphy, Hx Tubal Ligation - Immunizations Immunizations up to date: Yes Hx Diphtheria, Pertussis, Tetanus Vaccination: Yes Review of Systems - Review of Systems Notes: REVIEW OF SYSTEMS: CONSTITUTIONAL : Denies fever, chills, or sweats. Denies recent illness. Denies weight loss, recent hospitalizations. EENT: Denies visual changes, eye pain. Denies sore throat, oral lesions, difficulty swallowing. CARDIOVASCULAR: Denies chest pain. Denies palpitations. Denies lower extremity edema. RESPIRATORY: Denies cough. Denies shortness of breath, wheezing. GASTROINTESTINAL: Denies abdominal pain or distention. Denies nausea, vomiting, or diarrhea. Denies blood in vomitus, stools, or per rectum. Denies black, tarry stools. Denies constipation. GENITOURINARY: Denies difficulty urinating, painful urination, frequency, blood in urine, or vaginal discharge. MUSCULOSKELETAL: Denies back or neck pain or stiffness. Denies joint swelling. SKIN: Denies rash, lesions or sores. HEMATOLOGIC : Denies easy bruising or bleeding. LYMPHATIC: Denies swollen glands. NEUROLOGICAL: Denies confusion or altered mental status. Denies loss of consciousness. Denies dizziness or lightheadedness. Denies headache. Denies weakness or paralysis. Denies problems difficulty with ambulation, slurred speech. Denies sensory loss, numbness, or tingling. Denies seizures. PSYCHIATRIC: Denies anxiety or stress. Denies depression, suicidal ideation, or homicidal ideation. Denies visual or auditory hallucinations. Physical Exam - Vital signs Vitals: Temp Pulse Resp BP Pulse Ox 98.1 F 67 20 117/62 96 06/23/19 20:02 06/23/19 20:02 06/23/19 20:02 06/23/19 20:02 06/23/19 20:02 - Notes Notes: PHYSICAL EXAMINATION: GENERAL: Well-appearing, well-nourished and in no acute distress. HEAD: Atraumatic, normocephalic. EYES: Pupils equal round and reactive to light, extraocular movements intact, conjunctiva are normal. ENT: Nares patent, oropharynx clear without exudates. Moist mucous membranes. NECK: Normal range of motion, supple without lymphadenopathy LUNGS: Breath sounds clear to auscultation bilaterally and equal. No wheezes rales or rhonchi. HEART: Regular rate and rhythm without murmurs ABDOMEN: Soft, nontender, nondistended abdomen. No guarding, no rebound. No masses appreciated. Female : deferred Musculoskeletal: Normal range of motion, no pitting or edema. No cyanosis. Right upper extremity without obvious deformity, neuro deficits, sensation deficits. O And M Supervisor strength 5 out of 5. NEUROLOGICAL: Cranial nerves grossly intact. Normal speech, normal gait. Normal sensory, motor exams PSYCH: Normal mood, normal affect. SKIN: Warm, Dry, normal turgor, no rashes or lesions noted. Course - Re-evaluation Re-evalutation: 06/23/19 23:24 Shoulder X-Ray 06/23/19 20:25 IMPRESSION: No acute fracture or malalignment. 48-year-old female presents with right shoulder pain after a fall into a bathtub. X-ray was obtained and negative for fracture. No obvious deformity on exam. Patient neurologically intact. She does have pain with passive range of motion. Patient given Tylenol and IM morphine. Advised to follow-up with her orthopedic surgeon as needed. Advised to ice, perform gentle range of motion exercises. Presentation of a well patient in no acute distress, vitals within n ormal limits after a fall. No focal neurologic deficits on exam, no evidence of basilar skull fracture on exam without evidence of hemotympanum, raccoon eyes, or periauricular hematoma. No papilledema. Patient is not on anticoagulation. GCS is 15. Patient also evaluated by nexus criteria and found to be negative. Patient is also negative by kosovan CT head rule. No clinical evidence to suggest increased risk of cervical spine fracture. No indication for further imaging of the cervical spine. Patient has no focal deformities. Due to limited range of motion in right shoulder x-rays were obtained and negative for any acute fracture or dislocation. Chest and abdominal exam are benign without any focal tenderness, shortness of breath, or bruising over the chest or abdominal wall. Patient has no flank tenderness. There is no obvious findings on trauma exam today and therefore no further imaging or evaluation will be obtained at this time. I've instructed the patient to return to emergency room immediately should they have any worsening or new symptoms that are concerning to them. Patient was evaluated and treated as appropriate for the patient's presenting symptoms and complaint, with consideration of any critical or life threatening conditions that may be associated with their obtained history and exam as noted above. All results were discussed with patient and... Patient provided the opportunity to ask questions, and express concerns. Patient was educated on treatments based on their presumed diagnosis as noted above. At this time we will discharge the patient with return precautions and follow-up recommendations. Verbal discharge instructions given a the bedside. Medication warnings reviewed. Patient is in agreement with this plan and has verbalized understanding of return precautions. After careful consideration I feel that that patient can be safely discharged from the emergency department, they were advised to followup with a primary care physician in 2-3 days. Dictation on this chart was performed using voice recognition software and may result in unintended grammatical, spelling, syntax or errors. 06/24/19 01:13 - Vital Signs Vital signs: Temp Pulse Resp BP Pulse Ox 98.1 F 61 18 109/55 L 97 06/24/19 00:05 06/24/19 00:05 06/24/19 00:05 06/24/19 00:05 06/24/19 00:05 - Diagnostic Test Radiology reviewed: Image reviewed, Reports reviewed Discharge - Discharge Clinical Impression: Fall Qualifiers: Encounter type: initial encounter Qualified Code(s): W19.XXXA - Unspecified fall, initial encounter Contusion, upper extremity Qualifiers: Encounter type: initial encounter Laterality: right Qualified Code(s): S40.021A - Contusion of right upper arm, initial encounter Condition: Good Disposition: HOME, SELF-CARE Instructions: Contusion ([facility]) Additional Instructions: You have been seen in the Emergency Department (ED) today following a fall. Your workup today did not reveal any injuries that require you to stay in the hospital. You can expect, though, to be stiff and sore for the next several days. You can take Tylenol 1000 mg every 6 hours as needed for pain. You can apply a hot pack or electric heating pad to the sore areas. You can also use topical "Aspercreme with lidocaine" to sore areas as needed. Please follow up with your primary care doctor as soon as possible regarding today's ED visit and your recent fall. Call your doctor or return to the ED if you develop a sudden or severe headache, confusion, slurred speech, facial droop, weakness or numbness in any arm or leg, extreme fatigue, vomiting more than two times, severe abdominal pain, or other symptoms that concern you. Prescriptions: Naproxen [Naprosyn] 500 mg PO Q12H 7 Days #14 tablet Forms: Smoking Cessation Education Referrals: ANDREA JUNG DO [Primary Care Provider] - Follow up as needed
[2019-06-24 00:18] VITALS: BP 109/55
== END 2019-06-24 00:18 | disposition home or self-care (01) ==
LOC: ER 19:24
DX: S40.021A Contusion of right upper arm, initial encounter (principal); M25.511 Pain in right shoulder; W17.89XA Other fall from one level to another, initial encounter; Y93.E9 Activity, other interior property and clothing maintenance; Y99.0 Civilian activity done for income or pay; J44.9 Chronic obstructive pulmonary disease, unspecified; E11.9 Type 2 diabetes mellitus without complications; I10 Essential (primary) hypertension
CPT/HCPCS: 99283; 96374; 73030; L3650; J3490; J2270

== ENCOUNTER 2019-06-30 02:13 | Emergency (ER) | payer MEDICAID ==
--- NOTE | 2019-06-30 03:56 | ER Document Report ---
HPI - HPI Time Seen by Provider: 06/30/19 03:43 Pain Level: 4 Context: 48-year-old female with COPD, fibromyalgia, type 2 diabetes, arthritis presents with complaint of right shoulder pain that started after a trip and fall that occurred last Sunday while cleaning. Patient was seen here and given a sling and symptomatic care. X-rays were done which did not show any acute fracture dislocation. Patient states that when she went to get up out of bed she felt a pop and has been in excruciating pain since. She states that she is unable to move her shoulder at all. She has a strong 2+ radial pulse and brisk cap refill with a normal distal neurovascular exam. - REPRODUCTIVE Reproductive: DENIES: : Past Medical History - Social History Smoking Status: Current Every Day Smoker Family History: Arthritis, CAD, COPD, DM, Hyperlipidemia, Hypertension, Malignancy, Other Patient has suicidal ideation: No Patient has homicidal ideation: No - Past Medical History Cardiac Medical History: Reports: Hx Hypertension - on meds Pulmonary Medical History: Reports: Hx Asthma, Hx Bronchitis, Hx COPD - inhalers Neurological Medical History: Reports: Hx Migraine Endocrine Medical History: Reports: Hx Diabetes Mellitus Type 2 Renal/ Medical History: Reports: Hx Ovarian Cysts. Denies: Hx Peritoneal Dialysis GI Medical History: Reports: Hx Crohn's Disease, Hx Gastroesophageal Reflux Disease Musculoskeletal Medical History: Reports Hx Arthritis - spine, all joints, Reports Hx Fibromyalgia, Reports Hx Musculoskeletal Trauma Psychiatric Medical History: Reports: Hx Anxiety, Hx Attention Deficit Hyperactivity Disorder, Hx Depression, Hx Post Traumatic Stress Disorder Traumatic Medical History: Reports: Hx Fractures - Foot Past Surgical History: Reports: Hx Section - x2, Hx Cholecystectomy, Hx Herniorrhaphy, Hx Tubal Ligation - Immunizations Immunizations up to date: Yes Hx Diphtheria, Pertussis, Tetanus Vaccination: Yes Vertical Provider Document - CONSTITUTIONAL Notes: PHYSICAL EXAMINATION: Reviewed vital signs and charting by RN GENERAL: Alert, interacts well. No acute distress. HEAD: Normocephalic, atraumatic. EYES: Pupils equal and round. Extraocular movements intact. ENT: Oral mucosa moist, tongue midline. NECK: Full range of motion. Trachea midline. LUNGS: Clear to auscultation bilaterally, no wheezes, rales, or rhonchi. No respiratory distress. HEART: Regular rate and rhythm. No murmur ABDOMEN: soft, non-tender. No distention. Bowel sounds present EXTREMITIES: Acute pain with passive movement of the right shoulder, patient cannot actively flex or abduct the right shoulder, acute tenderness to palpation across the upper trapezius muscle, tenderness over the biceps tendon. Normal distal neurovascular exam PSYCH: Normal affect, normal mood. SKIN: Warm, dry, normal turgor. No rashes or lesions noted. - INFECTION CONTROL TRAVEL OUTSIDE OF THE [place] IN LAST 30 DAYS: No Course - Re-evaluation Re-evalutation: 06/30/19 03:58 Well-appearing in mild distress. Exam was limited somewhat from pain. Patient states that she has been wearing her sling and taking naproxen as directed. I suspect that she might have a biceps tendon injury or rotator cuff injury. I am going to give her a referral for Dr. Rosas who is on-call. Plan is to treat her with Toradol IM, Decadron IM, a Lidoderm patc,h. She agrees with plan and is stable for discharge. - Vital Signs Vital signs: Temp Pulse Resp BP Pulse Ox 98.1 F 72 16 125/68 96 06/30/19 02:16 06/30/19 02:16 06/30/19 02:16 06/30/19 02:16 06/30/19 02:16 Discharge - Discharge Clinical Impression: Right shoulder injury Qualifiers: Encounter type: subsequent encounter Qualified Code(s): S49.91XD - Unspecified injury of right shoulder and upper arm, subsequent encounter Condition: Good Disposition: HOME, SELF-CARE Additional Instructions: Please follow-up with Dr. lugo, orthopedist on-call. Please continue to wear your sling and continue to take naproxen 500 mg every 12 hours with food and/or milk. Please return to the emergency department if you lose feeling in your arm, your arm or fingers start to turn purple or blue, or you have any other concerning symptoms Referrals: ANDREA JUNG DO [Primary Care Provider] - Follow up as needed BIANCA ROSAS DO [ACTIVE STAFF] - 07/01/19
[2019-06-30] MEDS ORDERED: KETOROLAC TROMETHAMINE INJ/PF 30 MG/1 ML SDV IM ONE (04:02)
[2019-06-30] MEDS ORDERED: LIDOCAINE 5% (700 MG) TRANSDERMAL ADH..PATCH TP ONE (04:02)
[2019-06-30] MEDS ORDERED: DEXAMETHASONE SOD PHOS INJ 10 MG/1 ML VIAL IM ONE (04:02)
[2019-06-30 04:15] VITALS: BP 112/60
== END 2019-06-30 04:24 | disposition home or self-care (01) ==
LOC: ER 02:13
DX: S49.91XD Unspecified injury of right shoulder and upper arm, subsequent encounter (principal); M25.511 Pain in right shoulder; W01.0XXD Fall on same level from slipping, tripping and stumbling without subsequent striking against object, subsequent encounter; Y93.E9 Activity, other interior property and clothing maintenance; F17.200 Nicotine dependence, unspecified, uncomplicated; I10 Essential (primary) hypertension; Z79.899 Other long term (current) drug therapy; J44.9 Chronic obstructive pulmonary disease, unspecified; E11.9 Type 2 diabetes mellitus without complications
CPT/HCPCS: 99283; 96372; J1885; J3490; J1100